=== PATIENT | female | born 1955 | race African-American/Black ===

== ENCOUNTER 2016-04-13 19:27 | Emergency (ER) | payer OTHER ==
[~2016-04-13] VITALS: Ht 157.5 cm; Wt 95.7 kg
[~2016-04-13 19:27] MED LIST: ACET-704 PO; ACET500T33 PO; AMLO5TAB2 PO; CYCL5TAB PO; HYDR-2666 PO; HYDR12.553 PO; LOSA25TA PO; PRED50TA PO; PROAIR HFA8.5 GM IH; VENTOLIN HFA18 GM INH
[2016-04-13 22:17] LABS: BASO # 0.1 x10^3/uL (0.0-0.2); BASO % 1 % (0-3); EOS % 3 % (0-3); HEMATOCRIT 38.8 % (36.0-47.0); HEMOGLOBIN 12.2 g/dL (12.0-15.5); LYMPH # 1.9 x10^3/uL (1.0-4.8); LYMPH % 25 % (24-48); MEAN CORPUSCULAR HEMOGLOBIN 25 pg (25-35); MEAN CORPUSCULAR HGB CONC 31 g/dL (31-37); MEAN CORPUSCULAR VOLUME 79 fL (79-100); MONO % 9 % (0-9); NEUT % 63 % (31-73); PLATELET COUNT 157 x10^3/uL (140-400); RED BLOOD COUNT 4.89 x10^6/uL (3.50-5.40); RED CELL DISTRIBUTION WIDTH 17.4 % (11.5-14.5); WHITE BLOOD COUNT 7.6 x10^3/uL (4.0-11.0)
[2016-04-13 22:18] LABS: BILIRUBIN,URINE SMALL (NEG); GLUCOSE,URINE NEGATIVE (NEG); NITRITE,URINE NEGATIVE (NEG); PROTEIN,URINE NEGATIVE (NEG-TRACE)
[2016-04-13 22:25] LABS: BACTERIA,URINE FEW /HPF (0-FEW); RBC,URINE OCC /HPF (0-2); WBC,URINE OCC /HPF (0-4)
[2016-04-13 22:26] LABS: SQUAMOUS EPITHELIAL CELL,UR FEW /LPF
[2016-04-13] MEDS ORDERED: IPRATRPIUM/ALBUTEROL 0.5/2.5MG 3 ML NEBU. NEB ONE (22:30)
[2016-04-13] MEDS ORDERED: methylPREDNISolone SOD SUCC PF 125 MG/2 ML VIAL. IV ONE (22:30)
[2016-04-13 22:31] LABS: CREATININE 0.7 mg/dL (0.6-1.0); GFR 103.6; POTASSIUM 3.8 mmol/L (3.5-5.1)
[2016-04-13 22:37] LABS: ALBUMIN 3.2 g/dL (3.4-5.0); ALBUMIN/GLOBULIN RATIO 0.8 (1.0-1.7); TOTAL BILIRUBIN 0.4 mg/dL (0.2-1.0); TOTAL PROTEIN 7.1 g/dL (6.4-8.2)
[2016-04-13 22:58] LABS: OBC FLU VALID
[2016-04-13 23:57] VITALS: BP 136/82
[2016-04-14] MEDS ORDERED: PRED50TA PO (00:14)
--- NOTE | 2016-04-14 00:15 | PHYS DOC ---
Past Medical History Past Medical History: Asthma, COPD, Diverticulitis, Diverticulosis, GERD, Hypertension, Other Additional Past Medical Histor: anaphylactic reaction with intubation, ANGIOEDEMA Past Surgical History: Hysterectomy, Other Additional Past Surgical Histo: right oopherectomy Alcohol Use: Rarely Drug Use: None Adult General Chief Complaint Chief Complaint: SHORTNESS OF BREATH HPI HPI Patient is a 60 year old female who presents here today complaining of shortness of breath for 2 days. Patient reports an increasing today. Patient has any fever or shaking chills. Patient pushes had a dry nonproductive cough for approximately 1-2 days. Patient denies any chest pain nausea vomiting diarrhea. She reports no increasing in her chronic lower edema. Patient denies any orthopnea or PND. Patient does have dyspnea on exertion. Patient reports she has a history significant for angioedema, hypertension, COPD, and CHF. Patient denies any diabetes liver or kidney problems. Patient denies any prior coronary disease or strokes in the past. Patient reports she utilizes albuterol nebs and MDIs. Patient is allergic to Levaquin. Review of Systems Review of Systems Constitutional: Denies fever or chills [] Eyes: Denies change in visual acuity, redness, or eye pain [] Review of systems are negative except as documented in history of present illness portion. Current Medications Current Medications Current Medications Medications (Trade) Dose Ordered Sig/Kevon Start Time Stop Time Status Last Admin Dose Admin Albuterol/ Ipratropium (Duoneb) 3 ml 1X ONCE 04/13/16 22:30 04/13/16 22:31 DC 04/13/16 22:33 3 ML Methylprednisolone Sodium Succinate (Solu-Medrol 125mg Vial) 125 mg 1X ONCE 04/13/16 22:30 04/13/16 22:31 DC 04/13/16 22:31 125 MG Allergies Allergies Allergies Coded Allergies Type Severity Reaction Last Updated Verified levofloxacin Allergy Intermediate hives 09/22/15 Yes Physical Exam Physical Exam Constitutional: Well developed, well nourished, no acute distress, non-toxic appearance. [] HENT: Normocephalic, atraumatic, bilateral external ears normal, oropharynx moist, no oral exudates, nose normal. [] Eyes: PERRLA, EOMI, conjunctiva normal, no discharge. [] Neck: Normal range of motion, no tenderness, supple, no stridor. [] Cardiovascular:Heart rate regular rhythm, no murmur [] Lungs & Thorax: Mild diffuse inspiratory and expiratory wheezing. No respiratory distress. Abdomen: Bowel sounds normal, soft, no tenderness, no masses, no pulsatile masses. [] Skin: Warm, dry, no erythema, no rash. [] Back: No tenderness, no CVA tenderness. [] Extremities: No tenderness, no cyanosis, no clubbing, ROM intact, no edema. [] Neurologic: Alert and oriented X 3, normal motor function, normal sensory function, no focal deficits noted. [] Psychologic: Affect normal, judgement normal, mood normal. [] Current Patient Data Vital Signs Vital Signs Date Time Temp Pulse Resp B/P Pulse Ox O2 Delivery O2 Flow Rate FiO2 04/13/16 22:36 94 Room Air 04/13/16 21:33 98.2 75 19 150/84 98.2 Lab Values Laboratory Tests Test 04/13/16 21:30 04/13/16 22:30 White Blood Count 7.6x10^3/uL (4.0-11.0) Red Blood Count 4.89x10^6/uL (3.50-5.40) Hemoglobin 12.2g/dL (12.0-15.5) Hematocrit 38.8% (36.0-47.0) Mean Corpuscular Volume 79fL (79-100) Mean Corpuscular Hemoglobin 25pg (25-35) Mean Corpuscular Hemoglobin Concent 31g/dL (31-37) Red Cell Distribution Width 17.4% (11.5-14.5) H Platelet Count 157x10^3/uL (140-400) Neutrophils (%) (Auto) 63% (31-73) Lymphocytes (%) (Auto) 25% (24-48) Monocytes (%) (Auto) 9% (0-9) Eosinophils (%) (Auto) 3% (0-3) Basophils (%) (Auto) 1% (0-3) Neutrophils # (Auto) 4.8x10^3uL (1.8-7.7) Lymphocytes # (Auto) 1.9x10^3/uL (1.0-4.8) Monocytes # (Auto) 0.7x10^3/uL (0.0-1.1) Eosinophils # (Auto) 0.2x10^3/uL (0.0-0.7) Basophils # (Auto) 0.1x10^3/uL (0.0-0.2) Urine Collection Type Unknown Urine Color Yellow Urine Clarity Clear Urine pH 6.0 Urine Specific [place] 1.020 Urine Protein Negativemg/dL (NEG-TRACE) Urine Glucose (UA) Negativemg/dL (NEG) Urine Ketones (Stick) Negativemg/dL (NEG) Urine Blood Negative (NEG) Urine Nitrite Negative (NEG) Urine Bilirubin Small (NEG) Urine Urobilinogen Dipstick 1.0mg/dL (0.2 mg/dL) Urine Leukocyte Esterase Negative (NEG) Urine RBC Occ/HPF (0-2) Urine WBC Occ/HPF (0-4) Urine Squamous Epithelial Cells Few/LPF Urine Bacteria Few/HPF (0-FEW) Urine Mucus Slight/LPF Sodium Level 142mmol/L (136-145) Potassium Level 3.8mmol/L (3.5-5.1) Chloride Level 105mmol/L (98-107) Carbon Dioxide Level 32mmol/L (21-32) Anion Gap 5 (6-14) L Blood Urea Nitrogen 11mg/dL (7-20) Creatinine 0.7mg/dL (0.6-1.0) Estimated GFR (Cockcroft-Gault) 103.6 BUN/Creatinine Ratio 16 (6-20) Glucose Level 113mg/dL (70-99) H Calcium Level 9.0mg/dL (8.5-10.1) Total Bilirubin 0.4mg/dL (0.2-1.0) Aspartate Amino Transferase (AST) 14U/L (15-37) L Alanine Aminotransferase (ALT) 27U/L (14-59) Alkaline Phosphatase 96U/L (46-116) Troponin I Quantitative < 0.017ng/mL (0.000-0.055) JQ-Rwa-M-Type Natriuretic Peptide 38pg/mL (0-124) Total Protein 7.1g/dL (6.4-8.2) Albumin 3.2g/dL (3.4-5.0) L Albumin/Globulin Ratio 0.8 (1.0-1.7) L Influenza Type A Antigen Negative (NEGATIVE) Influenza Type B Antigen Negative (NEGATIVE) Laboratory Tests 04/13/16 21:30 Laboratory Tests 04/13/16 21:30 EKG EKG [] Interpretation Time: EKG reveals normal sinus rhythm at a heart rate of 70. No evidence of acute ST elevation. Patient's chest x-ray reveals normal heart size. No infiltrates or effusions. Radiology/Procedures Radiology/Procedures [] Course & Med Decision Making Course & Med Decision Making Pertinent Labs and Imaging studies reviewed. (See chart for details) [] A/P: #1 shortness of breath and wheezing. Patient with history significant for asthma/COPD. Patient's workup in the ER and been unremarkable. Patient did receive albuterol Atrovent and Keshawn on the ER with significant improvement in her symptoms. Patient currently feels well and is requesting to be discharged home. Patient is an bleeding the ER without any discomfort the faculty or shortness of breath. Patient is pulse oxing between 93 and 97% in the ER. Patient was taken off her oximeter is doing well without O2 here in the ER. Patient be discharged home with prednisone and with strict instructions to return to the ER she has any further problems. Patient will otherwise follow up with her doctor, Dr. Elizalde within the next 1-2 days. Dragon Disclaimer Dragon Disclaimer This electronic medical record was generated, in whole or in part, using a voice recognition dictation system. Departure Departure Impression: Primary Impression: COPD exacerbation Additional Impression: Dyspnea Disposition: 01 HOME, SELF-CARE Condition: IMPROVED Referrals: BONIFACIO SIDHU MD (PCP) Patient Instructions: Chronic Obstructive Pulmonary Disease Exacerbation Additional Instructions: Please return to the ER if have any further problems or shortness of breath. Please make sure he make an appointment with her doctor within the next 1-2 days. Please make sure you take her prednisone as directed. Scripts Prednisone 50 Mg Tablet1 Tab PO DAILY #5 TAB Prov:DESTINY RICHARDS MD 04/14/16 Problem Qualifiers DESTINY RICHARDS MD Apr 14, 2016 00:10
--- NOTE | 2016-04-14 08:33 | RAD ---
Portable chest, 04/13/2016: History: Shortness of breath Comparison is made to a study from 09/23/2015. The heart is at the upper limits of normal in size. The pulmonary vascularity is normal. No pulmonary infiltrates are seen. There is no evidence of pleural fluid. Mild spurring is present in the spine. IMPRESSION: 1. Borderline cardiomegaly. 2. No acute abnormality is detected.
--- NOTE | 2016-04-14 12:22 | EKG ---
[facility] [address] [place] [address] Test Date: 2016-04-13 Test Time: 21:55:19 Pat Name: IRAM RUIZ Department: Room: Gender: F Duplicating Machine Operator: : [id number] Requested By: DESTINY RICHARDS Order Number: [id number] Reading MD: Jackelyn Cruz Measurements Intervals [place] Rate: 69 P: 46 MD: 156 QRS: -9 QRSD: 88 T: 38 QT: 410 QTc: 441 Interpretive Statements SINUS RHYTHM LEFTWARD AXIS OTHERWISE NORMAL ECG RI6.01 Compared to ECG 10/10/2015 14:01:05 Left-axis deviation now present Electronically Signed On 04-16-2016 0:25:25 ELECTRICIAN OFFICE by Jackelyn Cruz
== END 2016-04-14 00:30 | disposition home or self-care (01) ==
LOC: ER 19:27
DX: J44.1 Chronic obstructive pulmonary disease with (acute) exacerbation (principal); J45.909 Unspecified asthma, uncomplicated; Z88.1 Allergy status to other antibiotic agents
CPT/HCPCS: 36415; 71010; 80053; 81001; 83880; 84484; 85027; 87804; 93005; 94250; 94640; 96374; 99285; J2930; J7620

== ENCOUNTER 2016-10-24 05:29 | Inpatient (IN) | payer OTHER ==
[~2016-10-24] VITALS: Ht 160 cm; Wt 94.5 kg
[2016-10-24] VITALS (18 sets, daily range): BP systolic 112–211; BP diastolic 62–135
[~2016-10-24 05:29] MED LIST changes: -HYDR-2666 PO; +HYDR-2758 PO
[2016-10-24] MEDS ORDERED: EPINEPHrine 1 MG/ML VIAL ONE (05:38)
[2016-10-24] MEDS ORDERED: FAMOTIDINE 20 MG/2 ML VIAL ONE (05:38)
[2016-10-24] MEDS ORDERED: diphenhydrAMINE 50 MG/ML VIAL ONE (05:38)
[2016-10-24] MEDS ORDERED: methylPREDNISolone SOD SUCC PF 125 MG/2 ML VIAL. ONE (05:39)
[2016-10-24 06:13] LABS: BASO % 0 % (0-3); EOS % 1 % (0-3); HEMATOCRIT 42.3 % (36.0-47.0); HEMOGLOBIN 13.3 g/dL (12.0-15.5); INR 0.9 (0.8-1.1); LYMPH # 1.6 x10^3/uL (1.0-4.8); LYMPH % 17 % (24-48); MEAN CORPUSCULAR HEMOGLOBIN 25 pg (25-35); MEAN CORPUSCULAR HGB CONC 32 g/dL (31-37); MEAN CORPUSCULAR VOLUME 80 fL (79-100); MONO % 7 % (0-9); NEUT % 75 % (31-73); PLATELET COUNT 146 x10^3/uL (140-400); PROTHROMBIN TIME PATIENT 11.9 SEC (11.7-14.0); RED BLOOD COUNT 5.26 x10^6/uL (3.50-5.40); RED CELL DISTRIBUTION WIDTH 18.3 % (11.5-14.5); WHITE BLOOD COUNT 9.4 x10^3/uL (4.0-11.0)
[2016-10-24 06:18] LABS: CALCIUM 8.6 mg/dL (8.5-10.1); CREATININE 0.6 mg/dL (0.6-1.0); GFR 123.4; POTASSIUM 3.8 mmol/L (3.5-5.1)
[2016-10-24 06:24] LABS: ALBUMIN 3.5 g/dL (3.4-5.0); TOTAL BILIRUBIN 0.5 mg/dL (0.2-1.0); TOTAL PROTEIN 7.1 g/dL (6.4-8.2)
[2016-10-24] MEDS ORDERED: methylPREDNISolone SOD SUCC PF 125 MG/2 ML VIAL. IV ONE (06:40)
[2016-10-24] MEDS ORDERED: IV NORMAL SALINE 1000ML BAG 1,000 ML IV ONE (06:40)
[2016-10-24] MEDS ORDERED: EPINEPHrine 1 MG/ML VIAL IM ONE ×2 (06:40→06:45)
[2016-10-24] MEDS ORDERED: diphenhydrAMINE 50 MG/ML VIAL IVP ONE (06:40)
[2016-10-24] MEDS ORDERED: FAMOTIDINE 20 MG/2 ML VIAL IVP ONE (06:40)
[2016-10-24] MEDS ORDERED: OXYMETAZOLINE 0.05% NASAL SPRAY 30ML BOTTLE. NS ONE (06:54)
[2016-10-24] MEDS ORDERED: PROPOFOL 50 ML IV ONE ×2 (06:55→07:20)
[2016-10-24] MEDS ORDERED: LIDOCAINE 1% PF 2 ML VIAL. NEB ONE (07:00)
--- NOTE | 2016-10-24 07:02 | PDOC2 ---
CONSULT Date of Consult Date of Consult DATE: 10/24/16 TIME: 06:58 Reason for Consult Reason for Consult: angioedema Referring Physician Referring Physician: Sylvie Identification/Chief Complaint Chief Complaint unable to breathe Problems: Source Source: Unable to obtain due to History of Present Illness Reason for Visit: 61 yo F with hx of angioedema and trach presents to ER with difficulty breathing secondary to swollen tongue. She is unable to speak but communicates with motions and writing. Past Medical History GI: Diverticulosis, Other Renal/: Other Past Surgical History Past Surgical History: Hysterectomy, Other Family History Family History: Alcohol Abuse, Obesity, Other Current Medications Current Medications Current Medications Epinephrine HCl (Adrenalin) 1 mg STK-MED ONCE .ROUTE ; Start 10/24/16 at 05:38; Stop 10/24/16 at 05:39; Status DC Diphenhydramine HCl (Benadryl) 50 mg STK-MED ONCE .ROUTE ; Start 10/24/16 at 05: 38; Stop 10/24/16 at 05:39; Status DC Famotidine (Pepcid) 20 mg STK-MED ONCE .ROUTE ; Start 10/24/16 at 05:38; Stop 10/24/16 at 05:39; Status DC Methylprednisolone Sodium Succinate (SOLU-Medrol 125MG VIAL) 125 mg STK-MED ONCE .ROUTE ; Start 10/24/16 at 05:39; Stop 10/24/16 at 05:40; Status DC Lidocaine HCl (Xylocaine-Mpf 1% Vial) 1 ml 1X ONCE NEB ; Start 10/24/16 at 07:00 ; Stop 10/24/16 at 07:01 Oxymetazoline HCl (Afrin) 120 spray STK-MED ONCE NS ; Start 10/24/16 at 06:54; Stop 10/24/16 at 06:55; Status DC Propofol 50 ml @ As Directed STK-MED ONCE IV ; Start 10/24/16 at 06:55; Stop 10/24 at 06:56; Status DC Active Scripts Active Prednisone 50 Mg Tablet 1 Tab PO DAILY Cyclobenzaprine Hcl 5 Mg Tablet 1 Tab PO TID Tylenol With Codeine #3 Tablet (Acetaminophen/Codeine Phosphate) 1 Each Tablet 1 Tab PO PRN Q6HRS PRN Prednisone 50 Mg Tablet 1 Tab PO DAILY Amlodipine Besylate 5 Mg Tablet 5 Mg PO DAILY Ventolin Hfa Inhaler (Albuterol Sulfate) 18 Gm Hfa.aer.ad 2 Puff INH Q4HRS Hydrocodone-Apap 5-325 (Hydrocodone Bit/Acetaminophen) 1 Each Tablet 1 Tab PO PRN Q6HRS PRN 30 Days Microzide (Hydrochlorothiazide) 12.5 Mg Capsule 12.5 Mg PO DAILY Cozaar (Losartan Potassium) 25 Mg Tablet 25 Mg PO DAILY Allergies Allergies: Coded Allergies: levofloxacin (Verified Allergy, Intermediate, hives, 09/22/15) lisinopril (Verified Allergy, Unknown, 10/24/16) ROS Review of System unobtainable, and hx mainly obtained from the chart Physical Exam General: Alert, Cooperative, moderate distress HEENT: Atraumatic, EOMI (swollen tongue) Abdomen: Soft, No tenderness Extremities: No clubbing, No cyanosis Skin: No rashes Psych/Mental Status: Mental status NL Vitals VITALS Vital Signs Date Time Temp Pulse Resp B/P (MAP) Pulse Ox O2 Delivery O2 Flow Rate FiO2 10/24/16 06:46 91 23 188/105 (132) 96 Room Air Labs Labs Laboratory Tests Test 10/24/16 05:40 White Blood Count 9.4 x10^3/uL (4.0-11.0) Red Blood Count 5.26 x10^6/uL (3.50-5.40) Hemoglobin 13.3 g/dL (12.0-15.5) Hematocrit 42.3 % (36.0-47.0) Mean Corpuscular Volume 80 fL (79-100) Mean Corpuscular Hemoglobin 25 pg (25-35) Mean Corpuscular Hemoglobin Concent 32 g/dL (31-37) Red Cell Distribution Width 18.3 % (11.5-14.5) Platelet Count 146 x10^3/uL (140-400) Neutrophils (%) (Auto) 75 % (31-73) Lymphocytes (%) (Auto) 17 % (24-48) Monocytes (%) (Auto) 7 % (0-9) Eosinophils (%) (Auto) 1 % (0-3) Basophils (%) (Auto) 0 % (0-3) Neutrophils # (Auto) 7.0 x10^3uL (1.8-7.7) Lymphocytes # (Auto) 1.6 x10^3/uL (1.0-4.8) Monocytes # (Auto) 0.7 x10^3/uL (0.0-1.1) Eosinophils # (Auto) 0.1 x10^3/uL (0.0-0.7) Basophils # (Auto) 0.0 x10^3/uL (0.0-0.2) Prothrombin Time 11.9 SEC (11.7-14.0) Prothromb Time International Ratio 0.9 (0.8-1.1) Activated Partial Thromboplast Time 26 SEC (24-38) Sodium Level 142 mmol/L (136-145) Potassium Level 3.8 mmol/L (3.5-5.1) Chloride Level 107 mmol/L (98-107) Carbon Dioxide Level 30 mmol/L (21-32) Anion Gap 5 (6-14) Blood Urea Nitrogen 14 mg/dL (7-20) Creatinine 0.6 mg/dL (0.6-1.0) Estimated GFR (Cockcroft-Gault) 123.4 BUN/Creatinine Ratio 23 (6-20) Glucose Level 109 mg/dL (70-99) Calcium Level 8.6 mg/dL (8.5-10.1) Total Bilirubin 0.5 mg/dL (0.2-1.0) Aspartate Amino Transf (AST/SGOT) 17 U/L (15-37) Alanine Aminotransferase (ALT/SGPT) 35 U/L (14-59) Alkaline Phosphatase 96 U/L (46-116) Total Protein 7.1 g/dL (6.4-8.2) Albumin 3.5 g/dL (3.4-5.0) Albumin/Globulin Ratio 1.0 (1.0-1.7) Laboratory Tests Test 10/24/16 05:40 White Blood Count 9.4 x10^3/uL (4.0-11.0) Red Blood Count 5.26 x10^6/uL (3.50-5.40) Hemoglobin 13.3 g/dL (12.0-15.5) Hematocrit 42.3 % (36.0-47.0) Mean Corpuscular Volume 80 fL (79-100) Mean Corpuscular Hemoglobin 25 pg (25-35) Mean Corpuscular Hemoglobin Concent 32 g/dL (31-37) Red Cell Distribution Width 18.3 % (11.5-14.5) Platelet Count 146 x10^3/uL (140-400) Neutrophils (%) (Auto) 75 % (31-73) Lymphocytes (%) (Auto) 17 % (24-48) Monocytes (%) (Auto) 7 % (0-9) Eosinophils (%) (Auto) 1 % (0-3) Basophils (%) (Auto) 0 % (0-3) Neutrophils # (Auto) 7.0 x10^3uL (1.8-7.7) Lymphocytes # (Auto) 1.6 x10^3/uL (1.0-4.8) Monocytes # (Auto) 0.7 x10^3/uL (0.0-1.1) Eosinophils # (Auto) 0.1 x10^3/uL (0.0-0.7) Basophils # (Auto) 0.0 x10^3/uL (0.0-0.2) Prothrombin Time 11.9 SEC (11.7-14.0) Prothromb Time International Ratio 0.9 (0.8-1.1) Activated Partial Thromboplast Time 26 SEC (24-38) Sodium Level 142 mmol/L (136-145) Potassium Level 3.8 mmol/L (3.5-5.1) Chloride Level 107 mmol/L (98-107) Carbon Dioxide Level 30 mmol/L (21-32) Anion Gap 5 (6-14) Blood Urea Nitrogen 14 mg/dL (7-20) Creatinine 0.6 mg/dL (0.6-1.0) Estimated GFR (Cockcroft-Gault) 123.4 BUN/Creatinine Ratio 23 (6-20) Glucose Level 109 mg/dL (70-99) Calcium Level 8.6 mg/dL (8.5-10.1) Total Bilirubin 0.5 mg/dL (0.2-1.0) Aspartate Amino Transf (AST/SGOT) 17 U/L (15-37) Alanine Aminotransferase (ALT/SGPT) 35 U/L (14-59) Alkaline Phosphatase 96 U/L (46-116) Total Protein 7.1 g/dL (6.4-8.2) Albumin 3.5 g/dL (3.4-5.0) Albumin/Globulin Ratio 1.0 (1.0-1.7) Assessment/Plan Assessment/Plan angioedema d/w anesthesia and pulm and ER will plan elective intubation in ER will be readily available for trach d/w pt Thanks for consult! DELPHINE SAM MD Oct 24, 2016 07:02
[2016-10-24] MEDS: IV NORMAL SALINE 1000ML BAG 1,000 ML IV SCH ×2 (07:09→17:09)
[2016-10-24] MEDS ORDERED: ONDANSETRON PF 4 MG/2 ML VIAL. IV PRN (07:15)
--- NOTE | 2016-10-24 07:27 | PHYS DOC ---
Past Medical History Past Medical History: Asthma, COPD, Diverticulitis, Diverticulosis, GERD, Hypertension, Other Additional Past Medical Histor: anaphylactic reaction with intubation, ANGIOEDEMA Past Surgical History: Hysterectomy, Other Additional Past Surgical Histo: right oopherectomy Alcohol Use: Rarely Drug Use: None Adult General Chief Complaint Chief Complaint: ALLERGIC REACTION HPI HPI Patient is a 61 year old female who presents with angioedema. It is difficult to communicate with the patient because of severe tongue swelling. Symptoms began this morning. She has extremely swollen tongue. Denies shortness of breath at this time. States she has previous episodes of angioedema, initially secondary to lisinopril, but with recurrence of idiopathic nature. Initial episode resulted in emergent tracheostomy. She denies use of any medications at this time. No new foods or environmental exposures. PCP is Dr. Sidhu. Review of Systems Review of Systems reports tongue swelling, otherwise unable to obtain due to clinical condition. Current Medications Current Medications Current Medications Medications (Trade) Dose Ordered Sig/Kevon Start Time Stop Time Status Last Admin Dose Admin Diphenhydramine HCl (Benadryl) 50 mg STK-MED ONCE 10/24/16 05:38 10/24/16 05:39 DC Epinephrine HCl (Adrenalin) 1 mg STK-MED ONCE 10/24/16 05:38 10/24/16 05:39 DC Famotidine (Pepcid) 20 mg STK-MED ONCE 10/24/16 05:38 10/24/16 05:39 DC Methylprednisolone Sodium Succinate (SOLU-Medrol 125MG VIAL) 125 mg STK-MED ONCE 10/24/16 05:39 10/24/16 05:40 DC Allergies Allergies Allergies Coded Allergies Type Severity Reaction Last Updated Verified levofloxacin Allergy Intermediate hives 09/22/15 Yes lisinopril Allergy Unknown 10/24/16 Yes Physical Exam Physical Exam Constitutional: Obese, no acute distress, non-toxic appearance. HENT: Normocephalic, atraumatic, bilateral external ears normal, oropharynx moist, nose normal. Angioedema with severe tongue edema, lips do not appear swollen, unable to visualize posterior oropharyngeal structures although there is some space between the tongue and the roof of her mouth Eyes: conjunctiva normal, no discharge. Neck: supple, no stridor. Cardiovascular: RRR, no murmurs, no edema. Lungs & Thorax: LCTAB, no wheezing, no respiratory distress. Abdomen: soft, nontender, nondistended. Skin: Warm, dry, no erythema, no rash. Back: No tenderness. Extremities: No tenderness, no edema. Neurologic: Alert, moves all extremities Current Patient Data Vital Signs Vital Signs Date Time Temp Pulse Resp B/P (MAP) Pulse Ox O2 Delivery O2 Flow Rate FiO2 10/24/16 06:10 78 23 148/82 (104) 96 Room Air Lab Values Laboratory Tests Test 10/24/16 05:40 White Blood Count 9.4 x10^3/uL (4.0-11.0) Red Blood Count 5.26 x10^6/uL (3.50-5.40) Hemoglobin 13.3 g/dL (12.0-15.5) Hematocrit 42.3 % (36.0-47.0) Mean Corpuscular Volume 80 fL (79-100) Mean Corpuscular Hemoglobin 25 pg (25-35) Mean Corpuscular Hemoglobin Concent 32 g/dL (31-37) Red Cell Distribution Width 18.3 % (11.5-14.5) H Platelet Count 146 x10^3/uL (140-400) Neutrophils (%) (Auto) 75 % (31-73) H Lymphocytes (%) (Auto) 17 % (24-48) L Monocytes (%) (Auto) 7 % (0-9) Eosinophils (%) (Auto) 1 % (0-3) Basophils (%) (Auto) 0 % (0-3) Neutrophils # (Auto) 7.0 x10^3uL (1.8-7.7) Lymphocytes # (Auto) 1.6 x10^3/uL (1.0-4.8) Monocytes # (Auto) 0.7 x10^3/uL (0.0-1.1) Eosinophils # (Auto) 0.1 x10^3/uL (0.0-0.7) Basophils # (Auto) 0.0 x10^3/uL (0.0-0.2) Prothrombin Time 11.9 SEC (11.7-14.0) Prothrombin Time INR 0.9 (0.8-1.1) PTT 26 SEC (24-38) Sodium Level 142 mmol/L (136-145) Potassium Level 3.8 mmol/L (3.5-5.1) Chloride Level 107 mmol/L (98-107) Carbon Dioxide Level 30 mmol/L (21-32) Anion Gap 5 (6-14) L Blood Urea Nitrogen 14 mg/dL (7-20) Creatinine 0.6 mg/dL (0.6-1.0) Estimated GFR (Cockcroft-Gault) 123.4 BUN/Creatinine Ratio 23 (6-20) H Glucose Level 109 mg/dL (70-99) H Calcium Level 8.6 mg/dL (8.5-10.1) Total Bilirubin 0.5 mg/dL (0.2-1.0) Aspartate Amino Transferase (AST) 17 U/L (15-37) Alanine Aminotransferase (ALT) 35 U/L (14-59) Alkaline Phosphatase 96 U/L (46-116) Total Protein 7.1 g/dL (6.4-8.2) Albumin 3.5 g/dL (3.4-5.0) Albumin/Globulin Ratio 1.0 (1.0-1.7) Laboratory Tests 10/24/16 05:40 Laboratory Tests 10/24/16 05:40 EKG EKG [] Radiology/Procedures Radiology/Procedures post intubation chest x-ray pending[] Course & Med Decision Making Course & Med Decision Making Pertinent Labs and Imaging studies reviewed. (See chart for details) The patient presents with angioedema. She was in no distress at time of arrival , stable oxygen saturation, normal breath sounds without stridor or wheezing. Immediately administered epinephrine, solumedrol, Benadryl, Pepcid, and IV fluids. Her tongue did not mention or improve. Give additional dose of IM epinephrine. Ordered FFP in case there is a component of hereditary angioedema. No change in her symptoms. Immediately after I assessed the patient I called for the MACHINERY ERECTOR and respiratory therapist to come to the emergency department. We repeatedly examined the patient together. MACHINERY ERECTOR present with difficult airway cart. Attempting to call anesthesiologist. I consulted with Dr. Blanc of general surgery who came to the emergency department. Reconvened at the bedside with MACHINERY ERECTOR, anesthesiologist, general surgeon. Decision made to proceed with intubation with surgeon present for trach placement if required. Anesthesia managed airway and placed endotracheal tube without complication. Patient placed on ventilator and sedation initiated. Post intubation chest x-ray was ordered, had not been resulted at time of dictation of this note. Mid way through her emergency department course I consulted with Dr. Burnett who agrees to consult, he was instrumental in communicating with anesthesia. Also discussed with Dr. Sidhu who agrees to admit to inpatient status to the ICU. The patient is being admitted in critical condition. Critical care time: 90 minutes [] Dragon Disclaimer Dragon Disclaimer This electronic medical record was generated, in whole or in part, using a voice recognition dictation system. Departure Departure Impression: Primary Impression: Angioedema Disposition: ADMITTED INPATIENT Admitting Physician: Bonifacio Sidhu Condition: CRITICAL Referrals: BONIFACIO SIDHU MD (PCP) LAINEY UMANA MD Oct 24, 2016 07:27
[2016-10-24] MEDS ORDERED: ETOMIDATE 20 MG/10 ML VIAL. IV ONE ×2 (07:40→08:00)
[2016-10-24] MEDS ORDERED: SUCCINYLCHOLINE 200 MG/10 ML VIAL. ONE (07:41)
[2016-10-24] MEDS ORDERED: fentaNYL PF VIAL 100 MCG/2 ML VIAL IV ONE (08:00)
[2016-10-24] MEDS ORDERED: MIDAZOLAM PREMIX 100 ML IV ONE ×2 (08:00→15:23)
[2016-10-24] MEDS ORDERED: PROPOFOL 100 ML IV ONE (08:00)
[2016-10-24] MEDS ORDERED: SUCCINYLCHOLINE 200 MG/10 ML VIAL. IV ONE (08:00)
[2016-10-24] MEDS ORDERED: MIDAZOLAM HCL/PF 5 MG/5 ML VIAL. IV ONE (08:00)
[2016-10-24 08:01] LABS: HCO3 ABG 25 mmol/L (21-28); PCO2 ABG 42 mmHg (35-46); PH ABG 7.39 (7.35-7.45); PO2 ABG 130 mmHg (65-108); SAT O2 ABG 98 % (92-99)
[2016-10-24 08:06] LABS: FIO2 ABG 50
--- NOTE | 2016-10-24 08:06 | RAD ---
Portable chest, 10/24/2016: History: Check ETT tube placement Comparison is made to a study from 04/13/2016. An ET tube is in place with its tip located 4-5 cm above the [place]. The heart is at the upper limits of normal in size. The pulmonary vascularity is within normal limits. No pulmonary infiltrate is seen. There is no evidence of pleural fluid, although the left lateral costophrenic angle was not completely included on this exam. IMPRESSION: 1. The ET tube is in satisfactory position. 2. No acute infiltrates.
--- NOTE | 2016-10-24 10:18 | PDOC ---
Provider Note Provider Note Pt seen.H&P dictated BONIFACIO SIDHU MD Oct 24, 2016 10:18
[2016-10-24] MEDS: methylPREDNISolone SOD SUCC PF 125 MG/2 ML VIAL. IV SCH ×2 (11:00→19:44)
[2016-10-24] MEDS: hydrALAZINE 20 MG/ML VIAL. IVP PRN ×2 (11:53→18:16)
--- NOTE | 2016-10-24 14:18 | PDOC ---
PULMONARY PROGRESS NOTES Vitals Vital Signs Date Time Temp Pulse Resp B/P (MAP) Pulse Ox O2 Delivery O2 Flow Rate FiO2 10/24/16 12:02 100 Ventilator 10/24/16 11:53 74 204/94 10/24/16 07:45 16 10/24/16 07:12 98.6 98.6 10/24/16 06:59 15.0 Labs Laboratory Tests Test 10/24/16 05:40 10/24/16 07:45 White Blood Count 9.4 x10^3/uL (4.0-11.0) Red Blood Count 5.26 x10^6/uL (3.50-5.40) Hemoglobin 13.3 g/dL (12.0-15.5) Hematocrit 42.3 % (36.0-47.0) Mean Corpuscular Volume 80 fL (79-100) Mean Corpuscular Hemoglobin 25 pg (25-35) Mean Corpuscular Hemoglobin Concent 32 g/dL (31-37) Red Cell Distribution Width 18.3 % (11.5-14.5) Platelet Count 146 x10^3/uL (140-400) Neutrophils (%) (Auto) 75 % (31-73) Lymphocytes (%) (Auto) 17 % (24-48) Monocytes (%) (Auto) 7 % (0-9) Eosinophils (%) (Auto) 1 % (0-3) Basophils (%) (Auto) 0 % (0-3) Neutrophils # (Auto) 7.0 x10^3uL (1.8-7.7) Lymphocytes # (Auto) 1.6 x10^3/uL (1.0-4.8) Monocytes # (Auto) 0.7 x10^3/uL (0.0-1.1) Eosinophils # (Auto) 0.1 x10^3/uL (0.0-0.7) Basophils # (Auto) 0.0 x10^3/uL (0.0-0.2) Prothrombin Time 11.9 SEC (11.7-14.0) Prothromb Time International Ratio 0.9 (0.8-1.1) Activated Partial Thromboplast Time 26 SEC (24-38) Sodium Level 142 mmol/L (136-145) Potassium Level 3.8 mmol/L (3.5-5.1) Chloride Level 107 mmol/L (98-107) Carbon Dioxide Level 30 mmol/L (21-32) Anion Gap 5 (6-14) Blood Urea Nitrogen 14 mg/dL (7-20) Creatinine 0.6 mg/dL (0.6-1.0) Estimated GFR (Cockcroft-Gault) 123.4 BUN/Creatinine Ratio 23 (6-20) Glucose Level 109 mg/dL (70-99) Calcium Level 8.6 mg/dL (8.5-10.1) Total Bilirubin 0.5 mg/dL (0.2-1.0) Aspartate Amino Transf (AST/SGOT) 17 U/L (15-37) Alanine Aminotransferase (ALT/SGPT) 35 U/L (14-59) Alkaline Phosphatase 96 U/L (46-116) Total Protein 7.1 g/dL (6.4-8.2) Albumin 3.5 g/dL (3.4-5.0) Albumin/Globulin Ratio 1.0 (1.0-1.7) O2 Saturation 98 % (92-99) Arterial Blood pH 7.39 (7.35-7.45) Arterial Blood pCO2 at Patient Temp 42 mmHg (35-46) Arterial Blood pO2 at Patient Temp 130 mmHg (65-108) Arterial Blood HCO3 25 mmol/L (21-28) Arterial Blood Base Excess 0 mmol/L (-3-3) FiO2 50 Laboratory Tests Test 10/24/16 05:40 10/24/16 07:45 White Blood Count 9.4 x10^3/uL (4.0-11.0) Red Blood Count 5.26 x10^6/uL (3.50-5.40) Hemoglobin 13.3 g/dL (12.0-15.5) Hematocrit 42.3 % (36.0-47.0) Mean Corpuscular Volume 80 fL (79-100) Mean Corpuscular Hemoglobin 25 pg (25-35) Mean Corpuscular Hemoglobin Concent 32 g/dL (31-37) Red Cell Distribution Width 18.3 % (11.5-14.5) Platelet Count 146 x10^3/uL (140-400) Neutrophils (%) (Auto) 75 % (31-73) Lymphocytes (%) (Auto) 17 % (24-48) Monocytes (%) (Auto) 7 % (0-9) Eosinophils (%) (Auto) 1 % (0-3) Basophils (%) (Auto) 0 % (0-3) Neutrophils # (Auto) 7.0 x10^3uL (1.8-7.7) Lymphocytes # (Auto) 1.6 x10^3/uL (1.0-4.8) Monocytes # (Auto) 0.7 x10^3/uL (0.0-1.1) Eosinophils # (Auto) 0.1 x10^3/uL (0.0-0.7) Basophils # (Auto) 0.0 x10^3/uL (0.0-0.2) Prothrombin Time 11.9 SEC (11.7-14.0) Prothromb Time International Ratio 0.9 (0.8-1.1) Activated Partial Thromboplast Time 26 SEC (24-38) Sodium Level 142 mmol/L (136-145) Potassium Level 3.8 mmol/L (3.5-5.1) Chloride Level 107 mmol/L (98-107) Carbon Dioxide Level 30 mmol/L (21-32) Anion Gap 5 (6-14) Blood Urea Nitrogen 14 mg/dL (7-20) Creatinine 0.6 mg/dL (0.6-1.0) Estimated GFR (Cockcroft-Gault) 123.4 BUN/Creatinine Ratio 23 (6-20) Glucose Level 109 mg/dL (70-99) Calcium Level 8.6 mg/dL (8.5-10.1) Total Bilirubin 0.5 mg/dL (0.2-1.0) Aspartate Amino Transf (AST/SGOT) 17 U/L (15-37) Alanine Aminotransferase (ALT/SGPT) 35 U/L (14-59) Alkaline Phosphatase 96 U/L (46-116) Total Protein 7.1 g/dL (6.4-8.2) Albumin 3.5 g/dL (3.4-5.0) Albumin/Globulin Ratio 1.0 (1.0-1.7) O2 Saturation 98 % (92-99) Arterial Blood pH 7.39 (7.35-7.45) Arterial Blood pCO2 at Patient Temp 42 mmHg (35-46) Arterial Blood pO2 at Patient Temp 130 mmHg (65-108) Arterial Blood HCO3 25 mmol/L (21-28) Arterial Blood Base Excess 0 mmol/L (-3-3) FiO2 50 Medications Active Scripts Medications Dose Route/Sig Max Daily Dose Days Date Category Prednisone 50 Mg Tablet 1 Tab PO DAILY 04/14/16 Rx Cyclobenzaprine Hcl 5 Mg Tablet 1 Tab PO TID 10/10/15 Rx Tylenol With Codeine #3 Tablet (Acetaminophen/Codeine Phosphate) 1 Each Tablet 1 Tab PO PRN Q6HRS PRN 10/10/15 Rx Prednisone 50 Mg Tablet 1 Tab PO DAILY 09/23/15 Rx Amlodipine Besylate 5 Mg Tablet 5 Mg PO DAILY 09/23/15 Rx Ventolin Hfa Inhaler (Albuterol Sulfate) 18 Gm Hfa.aer.ad 2 Puff INH Q4HRS 09/23/15 Rx Hydrocodone-Apap 5-325 (Hydrocodone Bit/Acetaminophen) 1 Each Tablet 1 Tab PO PRN Q6HRS PRN 30 04/21/14 Rx Microzide (Hydrochlorothiazide) 12.5 Mg Capsule 12.5 Mg PO DAILY 04/21/14 Rx Cozaar (Losartan Potassium) 25 Mg Tablet 25 Mg PO DAILY 04/21/14 Rx Impression . [id number] FULL CONSULT DICTATED THANKS CHINA HERCULES MD Oct 24, 2016 14:18
--- NOTE | 2016-10-24 17:16 | PDOC ---
Provider Note Provider Note Pt was seen in icu this am. H&P dictated. #[id number] BONIFACIO SIDHU MD Oct 24, 2016 17:15
[2016-10-24] MEDS ORDERED: cloNIDine TTS-1 1 PATCH PATCH.TDWK TD SCH (18:00)
[2016-10-24] MEDS: AMINO AC 3%/ELECTROLYTE/GLYCER 1,000 ML IV SCH (18:17)
[2016-10-24] MEDS: ENOXAPARIN 40 MG/0.4 ML SYRINGE. SQ SCH (19:45)
[2016-10-24] MEDS: FAMOTIDINE 20 MG/2 ML VIAL IVP SCH (21:00)
--- NOTE | 2016-10-24 21:56 | HP ---
ADMIT DATE: 10/24/2016 LOCATION: 112. REASON FOR ADMISSION TO THE HOSPITAL: Angioedema of the tongue. HISTORY OF PRESENT ILLNESS: The patient is a 61-year-old female. The patient has a history of idiopathic angioedema. This is, I believe, third episode she had. First episode was 10 years ago and at that time she was on ventilator. She had a tracheostomy , second time she was at and in the past she has seen Allergy, channel marketing specialist for angioedema and she is allergic to lisinopril and levofloxacin. The patient came into the Emergency Room. The last time I had seen her in the office more than a year ago. She was having difficulty in communicating and difficulty in swallowing and speaking because she developed swelling in the tongue and the patient was seen in the Emergency Room and was given epinephrine without much improvement and she was given fresh frozen plasma and because of worsening swelling and to protect the airway, the patient was intubated by anesthesia and admitted to the ICU. Pulmonary was consulted. PAST MEDICAL HISTORY: Has a history of hypertension, COPD, asthma, diverticulosis, angioedema idiopathic, had intubation in the past, had tracheostomy for the same problem. OTHER SURGICAL HISTORY: Hysterectomy, right oophorectomy, had a previous tracheostomy, which is closed now. ALLERGIES: LEVOFLOXACIN AND LISINOPRIL. MEDICATIONS: The patient is not taking any medications now. PERSONAL HISTORY: Used to smoke in the past. No history of alcohol or drug abuse. FAMILY HISTORY: Hypertension. REVIEW OF SYMPTOMS: Not able to elicit. The patient was intubated on vent. She is on Versed. PHYSICAL EXAMINATION: VITAL SIGNS: The patient has temperature 98, pulse 84, respirations 20, blood pressure 193/101 and 96% on room air. HEENT: Head is atraumatic. Pupils sluggish. The patient has swelling of the tongue, orally intubated. NECK: Scar of previous tracheostomy, which was closed. CHEST: Symmetrical. CARDIOVASCULAR: S1, S2. LUNGS: Good air entry. ABDOMEN: Soft, no masses palpable. EXTERNAL GENITALIA: Weiner present. RECTAL: Deferred. EXTREMITIES: No calf tenderness or edema. Pulses 1+. NEUROLOGIC: The patient is sedated on vent. LABORATORY DATA: Shows a white count of 9, hemoglobin 13, platelets 146. Electrolytes show sodium 142, potassium 3.8, chloride 107, bicarb 30, BUN 14, creatinine 0.6, glucose 109. LFTs were normal. INR 0.9. Chest x-ray: ET tube in position. No acute infiltrations. FINAL IMPRESSION: 1. Idiopathic angioedema. 2. Hypertension. PLAN: At this time was admit to the hospital ICU, intubated. The patient was given epinephrine, Benadryl, Solu-Medrol and FFP, ventilatory support. GI prophylaxis. DVT prophylaxis. We will have Pulmonology consult, Dermatology consult. BONIFACIO SIDHU MD DR: RODRIGUE/concepcion JOB#: [id number] / [id number] DELL
[2016-10-24] MEDS: MIDAZOLAM PREMIX 100 ML IV PRN (23:08)
[2016-10-25] VITALS (26 sets, daily range): BP systolic 138–197; BP diastolic 66–95
--- NOTE | 2016-10-25 00:39 | CONS ---
DATE OF CONSULTATION: 10/24/2016 ATTENDING PHYSICIAN: Dr. Cotton. REASON FOR CONSULTATION: The patient is seen in pulmonary consultation at the request of Dr. Wu for ____ management. HISTORY OF PRESENT ILLNESS: The patient is a 61-year-old, who has had previous angioedema. She is not on an JUAN DAVID inhibitor. She had difficulty communicating the Emergency Room as a consequence of severe tongue swelling. I discussed the case with the Emergency Department physician this morning. I also discussed with the anesthesiologist and Dr. Blanc. The patient was electively intubated in the Emergency Department. She is currently on assist control ventilation, sedated. She has had no issues with any respiratory distress. Her arterial blood gas revealed a pH of 7.39, pCO2 of 42, pO2 of 130. White count was noted. Chest x-ray reviewed proper position of the endotracheal tube with no significant infiltrates. PAST MEDICAL HISTORY: Remarkable for previous angioedema secondary to lisinopril. She is currently off of JUAN DAVID inhibitors. She has a history of COPD with asthma component, diverticulitis, diverticulosis, gastroesophageal reflux, hypertension, anaphylactic reaction to lisinopril requiring intubation, hysterectomy and right oophorectomy. PAST SURGICAL HISTORY: As above. ALLERGIES: TO LEVAQUIN AND LISINOPRIL. REVIEW OF SYSTEMS: Unobtainable secondary to the patient's condition. CURRENT MEDICATION: List was reviewed. Please see the MRAD. SOCIAL HISTORY: Unknown if she smokes. There is no history given of alcoholism. PHYSICAL EXAMINATION: GENERAL: The patient was sedated on mechanical ventilation. VITAL SIGNS: Have been stable since transfer to the intensive care unit, in fact the blood pressure has been elevated. HEENT: Eyes, the sclerae were nonicteric. NECK: Jugular venous distention was not elevated. No lymphadenopathy. CHEST: Orally, placed endotracheal tube. LUNGS: Bilaterally clear. No wheezes. CARDIOVASCULAR: Regular rate and rhythm with S1, S2, no S3. ABDOMEN: Soft, nontender, nondistended. EXTREMITIES: No clubbing, cyanosis or edema. NEUROLOGIC: The patient was sedated. A detailed neuro exam was not performed. LABORATORY DATA: Reviewed. Chest x-ray clear. IMPRESSION: 1. Acute respiratory failure secondary to angioedema. 2. History of lisinopril-induced angioedema. 3. Hypertension. 4. Chronic obstructive pulmonary disease with possible asthma component. 5. Diverticulitis. 6. History of diverticulosis. PLAN: 1. Continue mechanical support. 2. Initiate tube feeding in the morning. 3. We will evaluate on a daily basis. If the patient is ready to be extubated, woody deflate the cough and check for air leak around the cuff. 4. DVT and GI prophylaxis. Dr. Wu, I do appreciate the privilege in sharing in the patient's care. CHINA HERCULES MD DR: KASSY/concepcion JOB#: [id number] / [id number]
[2016-10-25] MEDS: methylPREDNISolone SOD SUCC PF 125 MG/2 ML VIAL. IV SCH ×3 (03:14→22:19)
[2016-10-25] MEDS: IV NORMAL SALINE 1000ML BAG 1,000 ML IV SCH (03:15)
--- NOTE | 2016-10-25 04:34 | ACF ---
Admission Forms Criteria SYSTEMIC OR INFECTIOUS CONDITION Clinical Indications for Admission to Inpatient Care (Place 'X' for any and all applicable criteria): Hospital admission is needed for appropriate care of the patient because of ANY ONE of the following: []I. Hemodynamic instability indicated by ANY ONE of the following(1)(2)(3)(4 )(5): []a. Vital sign abnormality not readily corrected by appropriate treatment within 12 to 24 hours indicated by ANY ONE of the following: []i) Tachycardia that persists despite appropriate treatment []ii) Hypotension that persists despite appropriate treatment []iii) Orthostatic vital sign changes that persist despite appropriate treatment []b. Vital sign abnormality that is severe indicated by ANY ONE of the following: []i. Inadequate perfusion indicated by ANY ONE of the following: []1) Lactic acidosis (greater than 2 mmol/L) []2) New abnormal capillary refill (greater than 3 seconds) []3) Reduced urine output []4) New altered mental status []5) Myocardial Ischemia []ii. Mean arterial pressure [A] less than 60 mm Hg []iii. Mean arterial pressure[A] less than 70 mm Hg after 30 minutes of appropriate treatment (eg, fluid resuscitation) []iv. Sustained heart rate greater than 120 beats per minute in adult []v. IV inotropic or vasopressor medication required to maintain adequate blood pressure or perfusion []II. Systemic or infectious condition causing severe symptoms or findings not responsive to emergency or observation care treatment (as appropriate) indicated by ANY ONE of the following: []a. Cardiac arrhythmias of immediate concern(1)(2)(3) []b. Severe endocrine disorder (eg, thyrotoxicosis, adrenal insufficiency)(4)(5) []c. Seizures (eg, new or recurrent)(6) []d. New-onset end organ failure or dysfunction as indicated by ANY ONE of the following: []i. Acute unexplained hypoxemia (eg, not from lung infection or chronic disease)(7)(8)(9) []ii. Acute renal failure as indicated by new onset of ANY ONE of the following(10)(11)(12)(13)(14): []1) 3-fold rise in serum creatinine from baseline []2) Serum creatinine greater than 4 mg/dL (354 micromoles/L) with acute rise greater than 0.5 mg/dL (44.2 micromoles/L) []3) Reduction of more than 75% in estimated glomerular filtration rate from baseline. []4) Estimated glomerular filtration rate less than 35 mL/min/1.73m2 ( 0.59 mL/sec/1.73m2) in child younger than 18 years. []5) Cessation of urine output indicated by ALL of the following: []A. Adequate volume status []B. Inadequate urine output as indicated by ANY ONE of the following: []a. Urine output less than 0.3 mL/kg/hr for 24 hours []b. Anuria (urine output less than 0.1 mL/kg/hr) for 12 hours []iii. Acute mental status changes(15) []iv. Acute hepatic failure (eg, plasma bilirubin greater than 4 mg/ dL (68 micromoles/L), new INR greater than 2.0)(16)(17) []e. Unmanageable nausea and vomiting(18) []f. New-onset or uncontrolled central diabetes insipidus(19)(20) []g. Clinically significant dehydration(18)(21) []h. Hypoglycemia(22) []i. Acidosis (pH less than 7.35) or alkalosis (pH greater than 7.45)( 22)(23) []j. Toxic drug level that indicates need for specific monitoring or treatment(24)(25) []k. Severe electrolyte abnormalities indicated by ALL of the following( 1)(2)(3): []i. Electrolytes and associated findings are not as expected for patient baseline or acceptable treatment effects. []ii. Severe abnormalities indicated by ANY ONE of the following: []1) Sodium less than 130 mEq/L (mmol/L) (new) []2) Sodium less than 135 mEq/L (mmol/L) with ANY ONE of the following: []A. Uncorrectable (to near normal or chronic baseline) after trial of outpatient and emergency treatment []B. Altered mental status []C. Seizures []D. Severe medical etiology requiring inpatient management (eg , heart failure, hypovolemia) []3) Sodium greater than 155 mEq/L (mmol/L) []4) Sodium greater than 150 mEq/L (mmol/L) with ANY ONE of the following: []A. Uncorrectable (to near normal or chronic baseline) with outpatient and emergency treatment []B. Altered mental status []C. Seizures []D. Severe medical etiology (eg, hypovolemia, diabetes insipidus) []5) Potassium less than 2.5 mEq/L (mmol/L) despite outpatient and emergency treatment []6) Potassium less than 3 mEq/L (mmol/L) with ANY ONE of the following : []A. Weakness []B. Cardiac abnormality (eg, arrhythmia, conduction disturbance ) []C. Cardiac ischemia []D. Ileus []E. Ongoing medical cause requiring inpatient management (eg, acute renal wasting or SIADH) []F. Other severe symptoms []7) Potassium greater than 6.5 mEq/L (mmol/L) []8) Potassium greater than 5 mEq/L (mmol/L) with ANY ONE of the following: []A. Uncorrectable (to near normal or chronic baseline) with outpatient and emergency treatment []B. Severe ECG findings[A] []C. Acute worsening of renal failure (creatinine greater than 2.5 mg/dL (221 micromoles/L) or significant elevation for age and size) []D. Severe weakness []E. Severe medical etiology (eg, hemolysis, infection, drug overdose) []9) Calcium less than 7 mg/dL (1.75 mmol/L) despite outpatient and emergency treatment(5) []10) Calcium less than 8 mg/dL (2 mmol/L) with significant symptoms or findings (eg, altered mental status, muscle spasms, seizures, breathing difficulty, cardiac abnormality (eg, arrhythmia or conduction disturbance))(5) []11) Calcium greater than 14 mg/dL (3.5 mmol/L)(5) []12) Calcium greater than 12 mg/dL (3 mmol/L) with ANY ONE of the following(5): []A. Uncorrectable (to near normal or chronic baseline) with outpatient and emergency treatment []B. Significant dehydration or hypovolemia as indicated by ALL of the following(3)(6)(7): []a. Not resolved with initial treatments []b. Clinically significant dehydration as indicated by ANY ONE of the following: [](1) Vomiting refractory to outpatient treatment (ie, precluding oral rehydration) [](2) Inability to drink [](3) Hypernatremia or other electrolyte abnormality unable to be corrected with outpatient and emergency treatment [](4) Failure to remain hydrated with outpatient therapy [](5) Reduced urine output [](6) Hypotension [](7) Serious cause for dehydration requiring acute hospitalization ( eg, bowel obstruction, increased intracranial pressure, infectious cause) [](8) Child with ANY ONE of the following(8): [](i) Severe abdominal tenderness [](ii) Adequate care not available at home [](iii) Severe dehydration (greater than 9% loss of body weight) []C. Significant symptoms or findings (eg, altered mental status , cardiac abnormality (eg, arrhythmia, conduction disturbance), malignant etiology requiring inpatient treatment) []13) Phosphorus less than 1 mg/dL (0.32 mmol/L) []14) Phosphorus less than 1.5 mg/dL (0.48 mmol/L) with ANY ONE of the following: []A. Patient unresponsive to outpatient and emergency treatment []B. Significant symptoms or findings (eg, weakness, altered mental status, breathing difficulty, seizures, rhabdomyolysis) []15) Phosphorus greater than 10 mg/dL (3.2 mmol/L) []16) Phosphorus greater than 4.5 mg/dL (1.45 mmol/L) (new) with ANY ONE of the following: []A. Severe medical etiology (eg, crush injury, acute renal failure) []B. Associated hypocalcemia with significant findings (eg, neurologic symptoms, altered mental status, muscle spasms, seizures, breathing difficulty, cardiac abnormality (eg, arrhythmia, conduction disturbance)) []16) Magnesium less than 1 mg/dL (0.41 mmol/L) []17) Magnesium less than 1.5 mg/dL (0.62 mmol/L) with ANY ONE of the following: []A. Patient unresponsive to outpatient and emergency treatment []B. Associated hypocalcemia with significant findings (eg, altered mental status, muscle spasms, seizures, breathing difficulty, cardiac abnormality (eg, arrhythmia, conduction disturbance)) []C. Associated hypokalemia (potassium less than 3 mEq/L (mmol/L )) with risk of arrhythmia []18) Magnesium greater than 4 mEq/L (2 mmol/L) []19) Magnesium greater than 2.5 mEq/L (1.25 mmol/L) with significant symptoms or findings (eg, weakness, altered mental status, cardiac abnormality (eg, arrhythmia, conduction disturbance), breathing difficulty, severe medical etiology (eg, renal failure, hypovolemia)) []20) Uric acid greater than 20 mg/dL (1190 micromoles/L)(9) []21) Uric acid greater than 8 mg/dL (476 micromoles/L) with significant symptoms or findings of tumor lysis syndrome (eg, creatinine greater than 1.5 times upper limit of normal, cardiac abnormality (eg , arrhythmia, conduction disturbance), seizure)(9) []III. High fever or other high-risk infection situation as indicated by ANY ONE of the following(26)(27)(28): []a. Outpatient and observation care antimicrobial treatment unavailable, not effective, or not appropriate []b. Documented bacteremia []c. Temperature greater than 104.9 degrees F (40.5 degrees C) (oral) []d. Temperature greater than 103.1 degrees F (39.5 degrees C) (oral) or less than 96.8 degrees F (36 degrees C) (rectal) that does not respond to emergency treatment and observation care []IV. High-risk febrile neutropenia[A] as indicated by ANY ONE of the following(29)(30)(31)(32): []a. Profound neutropenia[B] anticipated to extend for more than 7 days []b. Hemodynamic instability []c. Hypoxemia []d. Tachypnea []e. Altered mental status []f. New-onset abdominal pain []g. New-onset vomiting or diarrhea []h. Oral or gastrointestinal mucositis that interferes with swallowing or causes severe diarrhea []i. Focal infection (eg, cellulitis, pneumonia, central line or catheter infection, perirectal abscess) []j. Renal insufficiency (eg, GFR of less than 30 mL/min/1.73m2 (0.5 mL/sec /1.73m2)). []k. Severe liver dysfunction (transaminase levels greater than 5 times normal) []l. Platelet count less than 50,000/mm3 (50 x109/L)(33) []m. Leukemia or lymphoma induction therapy []n. Leukemia not in complete remission or with evidence of disease progression []o. Bone marrow transplant patient []p. Alemtuzumab being used for therapy []q. [employer] Supportive Care in Cancer (MASCC) Risk Index score of less than 21[C](33)(35). []V. Isolation required (eg, tuberculosis that requires isolation, Ebola infection)[D](36)(37)(38)(39)(40) []. Gangrene that requires treatment beyond emergency or observation level care(41)(42) []VII. Antitoxin administration and ongoing observation required (eg, tetanus, botulism)(43)(44) []. Suspected infection with rapid progression or severe symptoms as indicated by ANY ONE of the following(45): []a. Streptococcal or staphylococcal toxic shock(46) []b. Diphtheria(47) []c. Hantavirus(48) []d. Severe acute respiratory syndrome(8)(49) []e. Anthrax(50) []f. Ebola[D](36)(37)(38) []g. Necrotizing soft tissue infection(41)(42) []h. Plague(50) []i. Other suspected infection that requires care beyond emergency or observation level care []VII. Severe adverse drug or systemic toxin reaction as indicated by ANY ONE of the following(24): []a. Serotonin syndrome(51)(52) []b. Neuroleptic malignant syndrome(51)(52) []c. Cholinergic syndrome with severe symptoms (eg, bronchorrhea, weakness , mental status changes, seizures)(53) []d. Anticholinergic syndrome []e. Sympathetic syndrome with severe symptoms (eg, seizures, mental status changes, cardiac dysrhythmias) []f. Other severe adverse drug or systemic toxin reaction that remains after emergency or observation level care (as appropriate) [X]VIII. Allergic reaction with severe symptoms (not responsive to emergency or observation care treatment as appropriate), including ANY ONE of the following(54): []a. Airway edema (pharyngeal, epiglottic, or laryngeal edema) []b. Stridor [X]c. Respiratory failure []d. Bronchospasm []e. Hypotension []IX. Environmental emergency (not responsive to emergency or observation care treatment as appropriate) as indicated by ANY ONE of the following(55)(56): []a. Hyperthermia []b. Heat stroke []c. Heat exhaustion []d. Hypothermia (temperature less than 95 degrees F (35 degrees C) rectal) (57) []e. Electrocution(58) []X. Complications of transplanted organ (ie, not covered elsewhere)[E] indicated by ANY ONE of the following(59): []a. Acute graft rejection (or graft vs. host disease)[F] requiring inpatient management (eg, intravenous immunosuppression)(60)(61)(62)( 63) []b. Acute failure of transplanted organ necessitating inpatient care (eg, cannot be managed in other setting) []c. Infection requiring inpatient management (eg, Hemodynamic instability, need for intravenous antimicrobial treatment)(64)(65) []d. Other complication of transplanted organ requiring inpatient management []XI. Systemic or Infectious Condition condition, symptom, or finding for which emergency and observation care have failed or are not considered appropriate. See General Criteria: Observation Care, General Admission Criteria or Pediatric General Admission Criteria guideline as appropriate. The original [facility] content created by [facility] has been revised. The portions of the content which have been revised are identified through the use of italic text or in bold and [facility] has neither reviewed nor approved the modified material. All other unmodified content is copyright [facility]. Please see references footnoted in the original [facility] edition 2016 Admission Criteria Met?: Yes ADAM CARPENTER Oct 25, 2016 04:34
[2016-10-25] MEDS: AMINO AC 3%/ELECTROLYTE/GLYCER 1,000 ML IV SCH (05:11)
[2016-10-25 05:14] LABS: BASO % 0 % (0-3); EOS % 0 % (0-3); HEMATOCRIT 36.3 % (36.0-47.0); HEMOGLOBIN 11.5 g/dL (12.0-15.5); LYMPH # 1.1 x10^3/uL (1.0-4.8); LYMPH % 9 % (24-48); MEAN CORPUSCULAR HEMOGLOBIN 25 pg (25-35); MEAN CORPUSCULAR HGB CONC 32 g/dL (31-37); MEAN CORPUSCULAR VOLUME 79 fL (79-100); MONO % 3 % (0-9); NEUT % 88 % (31-73); PLATELET COUNT 152 x10^3/uL (140-400); RED BLOOD COUNT 4.58 x10^6/uL (3.50-5.40); RED CELL DISTRIBUTION WIDTH 18.1 % (11.5-14.5); WHITE BLOOD COUNT 12.8 x10^3/uL (4.0-11.0)
[2016-10-25 05:38] LABS: CALCIUM 8.9 mg/dL (8.5-10.1); CREATININE 0.7 mg/dL (0.6-1.0); GFR 103.3; POTASSIUM 3.5 mmol/L (3.5-5.1)
[2016-10-25] MEDS: hydrALAZINE 20 MG/ML VIAL. IVP PRN ×3 (05:44→22:22)
[2016-10-25 08:12] LABS: HCO3 ABG 22 mmol/L (21-28); PCO2 ABG 29 mmHg (35-46); PO2 ABG 84 mmHg (65-108); SAT O2 ABG 96 % (92-99)
[2016-10-25 08:15] LABS: FIO2 ABG 40
[2016-10-25] MEDS: MIDAZOLAM PREMIX 100 ML IV PRN ×2 (08:32→17:40)
--- NOTE | 2016-10-25 08:56 | PDOC ---
PULMONARY PROGRESS NOTES Subjective ON VENT SEDATED Vitals Vital Signs Date Time Temp Pulse Resp B/P (MAP) Pulse Ox O2 Delivery O2 Flow Rate FiO2 10/25/16 07:37 98 Ventilator 10/25/16 07:00 80 16 150/80 (103) 10/25/16 04:20 98.8 98.8 10/24/16 07:59 15.0 HEENT: Other (TONGUE) Lungs: Clear Cardiovascular: S1, S2 Abdomen: Soft Neuro Exam: Alert Extremities: No Edema Skin: Warm Labs Laboratory Tests Test 10/24/16 05:40 10/24/16 07:45 10/24/16 10:00 10/25/16 04:20 White Blood Count 9.4 x10^3/uL (4.0-11.0) 12.8 x10^3/uL (4.0-11.0) Red Blood Count 5.26 x10^6/uL (3.50-5.40) 4.58 x10^6/uL (3.50-5.40) Hemoglobin 13.3 g/dL (12.0-15.5) 11.5 g/dL (12.0-15.5) Hematocrit 42.3 % (36.0-47.0) 36.3 % (36.0-47.0) Mean Corpuscular Volume 80 fL (79-100) 79 fL (79-100) Mean Corpuscular Hemoglobin 25 pg (25-35) 25 pg (25-35) Mean Corpuscular Hemoglobin Concent 32 g/dL (31-37) 32 g/dL (31-37) Red Cell Distribution Width 18.3 % (11.5-14.5) 18.1 % (11.5-14.5) Platelet Count 146 x10^3/uL (140-400) 152 x10^3/uL (140-400) Neutrophils (%) (Auto) 75 % (31-73) 88 % (31-73) Lymphocytes (%) (Auto) 17 % (24-48) 9 % (24-48) Monocytes (%) (Auto) 7 % (0-9) 3 % (0-9) Eosinophils (%) (Auto) 1 % (0-3) 0 % (0-3) Basophils (%) (Auto) 0 % (0-3) 0 % (0-3) Neutrophils # (Auto) 7.0 x10^3uL (1.8-7.7) 11.2 x10^3uL (1.8-7.7) Lymphocytes # (Auto) 1.6 x10^3/uL (1.0-4.8) 1.1 x10^3/uL (1.0-4.8) Monocytes # (Auto) 0.7 x10^3/uL (0.0-1.1) 0.4 x10^3/uL (0.0-1.1) Eosinophils # (Auto) 0.1 x10^3/uL (0.0-0.7) 0.0 x10^3/uL (0.0-0.7) Basophils # (Auto) 0.0 x10^3/uL (0.0-0.2) 0.0 x10^3/uL (0.0-0.2) Prothrombin Time 11.9 SEC (11.7-14.0) Prothromb Time International Ratio 0.9 (0.8-1.1) Activated Partial Thromboplast Time 26 SEC (24-38) Sodium Level 142 mmol/L (136-145) 139 mmol/L (136-145) Potassium Level 3.8 mmol/L (3.5-5.1) 3.5 mmol/L (3.5-5.1) Chloride Level 107 mmol/L (98-107) 105 mmol/L (98-107) Carbon Dioxide Level 30 mmol/L (21-32) 23 mmol/L (21-32) Anion Gap 5 (6-14) 11 (6-14) Blood Urea Nitrogen 14 mg/dL (7-20) 14 mg/dL (7-20) Creatinine 0.6 mg/dL (0.6-1.0) 0.7 mg/dL (0.6-1.0) Estimated GFR (Cockcroft-Gault) 123.4 103.3 BUN/Creatinine Ratio 23 (6-20) Glucose Level 109 mg/dL (70-99) 147 mg/dL (70-99) Calcium Level 8.6 mg/dL (8.5-10.1) 8.9 mg/dL (8.5-10.1) Total Bilirubin 0.5 mg/dL (0.2-1.0) Aspartate Amino Transf (AST/SGOT) 17 U/L (15-37) Alanine Aminotransferase (ALT/SGPT) 35 U/L (14-59) Alkaline Phosphatase 96 U/L (46-116) Total Protein 7.1 g/dL (6.4-8.2) Albumin 3.5 g/dL (3.4-5.0) Albumin/Globulin Ratio 1.0 (1.0-1.7) O2 Saturation 98 % (92-99) Arterial Blood pH 7.39 (7.35-7.45) Arterial Blood pCO2 at Patient Temp 42 mmHg (35-46) Arterial Blood pO2 at Patient Temp 130 mmHg (65-108) Arterial Blood HCO3 25 mmol/L (21-28) Arterial Blood Base Excess 0 mmol/L (-3-3) FiO2 50 Nasal Screen MRSA (PCR) Negative (Negative) Test 10/25/16 08:10 O2 Saturation 96 % (92-99) Arterial Blood pH 7.50 (7.35-7.45) Arterial Blood pCO2 at Patient Temp 29 mmHg (35-46) Arterial Blood pO2 at Patient Temp 84 mmHg (65-108) Arterial Blood HCO3 22 mmol/L (21-28) Arterial Blood Base Excess 0 mmol/L (-3-3) FiO2 40 Laboratory Tests Test 10/24/16 10:00 10/25/16 04:20 10/25/16 08:10 Nasal Screen MRSA (PCR) Negative (Negative) White Blood Count 12.8 x10^3/uL (4.0-11.0) Red Blood Count 4.58 x10^6/uL (3.50-5.40) Hemoglobin 11.5 g/dL (12.0-15.5) Hematocrit 36.3 % (36.0-47.0) Mean Corpuscular Volume 79 fL (79-100) Mean Corpuscular Hemoglobin 25 pg (25-35) Mean Corpuscular Hemoglobin Concent 32 g/dL (31-37) Red Cell Distribution Width 18.1 % (11.5-14.5) Platelet Count 152 x10^3/uL (140-400) Neutrophils (%) (Auto) 88 % (31-73) Lymphocytes (%) (Auto) 9 % (24-48) Monocytes (%) (Auto) 3 % (0-9) Eosinophils (%) (Auto) 0 % (0-3) Basophils (%) (Auto) 0 % (0-3) Neutrophils # (Auto) 11.2 x10^3uL (1.8-7.7) Lymphocytes # (Auto) 1.1 x10^3/uL (1.0-4.8) Monocytes # (Auto) 0.4 x10^3/uL (0.0-1.1) Eosinophils # (Auto) 0.0 x10^3/uL (0.0-0.7) Basophils # (Auto) 0.0 x10^3/uL (0.0-0.2) Sodium Level 139 mmol/L (136-145) Potassium Level 3.5 mmol/L (3.5-5.1) Chloride Level 105 mmol/L (98-107) Carbon Dioxide Level 23 mmol/L (21-32) Anion Gap 11 (6-14) Blood Urea Nitrogen 14 mg/dL (7-20) Creatinine 0.7 mg/dL (0.6-1.0) Estimated GFR (Cockcroft-Gault) 103.3 Glucose Level 147 mg/dL (70-99) Calcium Level 8.9 mg/dL (8.5-10.1) O2 Saturation 96 % (92-99) Arterial Blood pH 7.50 (7.35-7.45) Arterial Blood pCO2 at Patient Temp 29 mmHg (35-46) Arterial Blood pO2 at Patient Temp 84 mmHg (65-108) Arterial Blood HCO3 22 mmol/L (21-28) Arterial Blood Base Excess 0 mmol/L (-3-3) FiO2 40 Medications Active Scripts Medications Dose Route/Sig Max Daily Dose Days Date Category Prednisone 50 Mg Tablet 1 Tab PO DAILY 04/14/16 Rx Cyclobenzaprine Hcl 5 Mg Tablet 1 Tab PO TID 10/10/15 Rx Tylenol With Codeine #3 Tablet (Acetaminophen/Codeine Phosphate) 1 Each Tablet 1 Tab PO PRN Q6HRS PRN 10/10/15 Rx Prednisone 50 Mg Tablet 1 Tab PO DAILY 09/23/15 Rx Amlodipine Besylate 5 Mg Tablet 5 Mg PO DAILY 09/23/15 Rx Ventolin Hfa Inhaler (Albuterol Sulfate) 18 Gm Hfa.aer.ad 2 Puff INH Q4HRS 09/23/15 Rx Hydrocodone-Apap 5-325 (Hydrocodone Bit/Acetaminophen) 1 Each Tablet 1 Tab PO PRN Q6HRS PRN 30 04/21/14 Rx Microzide (Hydrochlorothiazide) 12.5 Mg Capsule 12.5 Mg PO DAILY 04/21/14 Rx Cozaar (Losartan Potassium) 25 Mg Tablet 25 Mg PO DAILY 04/21/14 Rx Impression . 1. Acute respiratory failure secondary to angioedema. 2. History of lisinopril-induced angioedema. 3. Hypertension. 4. Chronic obstructive pulmonary disease with possible asthma component. 5. Diverticulitis. 6. History of diverticulosis. Plan . PT NOT READY FOR EXTUBATION, NO AIRLEAK AROUND TRACH WITH CUFF DOWN 1. Continue mechanical support. 2. Initiate tube feeding in the morning. 3. We will evaluate on a daily basis. 4. DVT and GI prophylaxis. 5. START TUBE FEEDING [employer] MD Oct 25, 2016 08:56
--- NOTE | 2016-10-25 10:36 | PDOC ---
PROGRESS NOTES Subjective Subjective on vent ,sedated Objective Objective Vital Signs Date Time Temp Pulse Resp B/P (MAP) Pulse Ox O2 Delivery O2 Flow Rate FiO2 10/25/16 10:00 82 16 149/81 (103) 98 Ventilator 10/25/16 08:00 98.8 98.8 10/24/16 07:59 15.0 Intake and Output 10/25/16 07:00 Intake Total 2148 ml Output Total 1743 ml Balance 405 ml Intake Oral 0 ml Blood Product IV Normal Saline Flush 2148 ml Output Urine Total 1743 ml Physical Exam Physical Exam tongue swollen, ET tube inplace Abdomen: Soft, No tenderness Heart: Regular rate Extremities: No clubbing, No cyanosis Lungs: Normal air movement Diagnosis Problem List Problems Medical Problems: (1) Angioedema Status: Acute Assessment Assessment Problems Medical Problems: (1) Angioedema Status: Acute FINAL IMPRESSION: 1. Idiopathic angioedema. 2. Hypertension. 3. On vent for airway protection PLAN: tube feedings gi protection dvt prevention. iv solumedrol. At this time was admit to the hospital ICU, intubated. The patient was given epinephrine, Benadryl, Solu-Medrol and FFP,needing ventilatory support. GI prophylaxis. DVT prophylaxis. We will have Pulmonology consult, Dermatology consult. Problems: Plan Plan of Care Problems Medical Problems: (1) Angioedema Status: Acute Comment Review of Relevant I have reviewed the following items tu (where applicable) has been applied. Labs Laboratory Tests Test 10/25/16 04:20 10/25/16 08:10 White Blood Count 12.8 x10^3/uL (4.0-11.0) Red Blood Count 4.58 x10^6/uL (3.50-5.40) Hemoglobin 11.5 g/dL (12.0-15.5) Hematocrit 36.3 % (36.0-47.0) Mean Corpuscular Volume 79 fL (79-100) Mean Corpuscular Hemoglobin 25 pg (25-35) Mean Corpuscular Hemoglobin Concent 32 g/dL (31-37) Red Cell Distribution Width 18.1 % (11.5-14.5) Platelet Count 152 x10^3/uL (140-400) Neutrophils (%) (Auto) 88 % (31-73) Lymphocytes (%) (Auto) 9 % (24-48) Monocytes (%) (Auto) 3 % (0-9) Eosinophils (%) (Auto) 0 % (0-3) Basophils (%) (Auto) 0 % (0-3) Neutrophils # (Auto) 11.2 x10^3uL (1.8-7.7) Lymphocytes # (Auto) 1.1 x10^3/uL (1.0-4.8) Monocytes # (Auto) 0.4 x10^3/uL (0.0-1.1) Eosinophils # (Auto) 0.0 x10^3/uL (0.0-0.7) Basophils # (Auto) 0.0 x10^3/uL (0.0-0.2) Sodium Level 139 mmol/L (136-145) Potassium Level 3.5 mmol/L (3.5-5.1) Chloride Level 105 mmol/L (98-107) Carbon Dioxide Level 23 mmol/L (21-32) Anion Gap 11 (6-14) Blood Urea Nitrogen 14 mg/dL (7-20) Creatinine 0.7 mg/dL (0.6-1.0) Estimated GFR (Cockcroft-Gault) 103.3 Glucose Level 147 mg/dL (70-99) Calcium Level 8.9 mg/dL (8.5-10.1) O2 Saturation 96 % (92-99) Arterial Blood pH 7.50 (7.35-7.45) Arterial Blood pCO2 at Patient Temp 29 mmHg (35-46) Arterial Blood pO2 at Patient Temp 84 mmHg (65-108) Arterial Blood HCO3 22 mmol/L (21-28) Arterial Blood Base Excess 0 mmol/L (-3-3) FiO2 40 Medications Current Medications Amino Acids/ Glycerin/ Electrolytes 1,000 ml @ 100 mls/hr Q10H IV Last administered on 10/25/16 05:11; Start 10/24/16 at 16:45 Clonidine HCl (Catapres Tts-1) 1 patch WEEKLY TD Last administered on 10/24/16 18:17; Start 10/24/16 at 18:00 Enoxaparin Sodium (Lovenox 40mg Syringe) 40 mg Q24H SQ Last administered on 10/24 19:45; Start 10/24/16 at 20:00 Enoxaparin Sodium (Lovenox Per Pharmacy Prophylaxis Dosing) 1 each PRN DAILY PRN MC SEE COMMENTS; Start 10/24/16 at 19:00 Famotidine (Pepcid) 20 mg QHS IVP Last administered on 10/24/16 21:00; Start at 21:00 Hydralazine HCl (Apresoline) 10 mg PRN Q4HRS PRN IVP ELEVATED BP, SEE COMMENTS Last administered on 10/25/16 05:44; Start 10/24/16 at 11:45 Methylprednisolone Sodium Succinate (SOLU-Medrol 125MG VIAL) 125 mg Q8H IV Last administered on 10/25/16 03:14; Start 10/24/16 at 11:00 Midazolam HCl 100 ml @ As Directed STK-MED ONCE IV ; Start 10/24/16 at 15:23; Stop 10/24/16 at 15:24; Status DC Midazolam HCl 100 ml @ 0 mls/hr CONT PRN IV SEE I/O RECORD Last administered on 10/25/16 08:32; Start 10/24/16 at 15:45 Vitals/I & O Vital Sign - Last 24 Hours 10/24/16 10/24/16 10/24/16 10/24/16 10:45 11:00 11:53 12:00 Temp 98.7 98.7 Pulse 78 74 78 Resp 16 16 B/P (MAP) 171/96 (121) 204/94 191/109 (136) Pulse Ox 99 O2 Delivery Ventilator Ventilator Ventilator 10/24/16 10/24/16 10/24/16 10/24/16 12:02 13:00 14:00 14:05 Pulse 78 78 Resp 16 16 B/P (MAP) 178/99 (125) 160/85 (110) Pulse Ox 100 99 O2 Delivery Ventilator Ventilator Ventilator Ventilator 10/24/16 10/24/16 10/24/16 10/24/16 15:00 15:53 16:00 17:00 Temp 98.0 98.0 Pulse 78 78 78 Resp 16 16 16 B/P (MAP) 165/87 (113) 168/85 (112) 165/86 (112) Pulse Ox 99 O2 Delivery Ventilator Ventilator Ventilator Ventilator 10/24/16 10/24/16 10/24/16 10/24/16 17:49 18:00 18:16 19:00 Pulse 78 80 106 Resp 16 B/P (MAP) 163/62 (95) 165/85 170/79 (109) Pulse Ox 99 99 O2 Delivery Ventilator Ventilator Ventilator 10/24/16 10/24/16 10/24/16 10/24/16 19:38 20:00 20:00 21:00 Temp 100.1 100.1 Pulse 108 104 B/P (MAP) 161/80 (107) 160/80 (106) Pulse Ox 98 99 99 O2 Delivery Ventilator Mechanical Ventilator Ventilator Ventilator 10/24/16 10/24/16 10/24/16 10/25/16 22:00 22:35 23:00 00:00 Pulse 96 86 Resp 16 16 B/P (MAP) 146/75 (98) 141/78 (99) Pulse Ox 100 99 99 O2 Delivery Ventilator Ventilator Ventilator Mechanical Ventilator 10/25/16 10/25/16 10/25/16 10/25/16 00:14 00:36 01:03 01:12 Temp 98.7 98.7 Pulse 82 80 79 Resp 16 16 16 B/P (MAP) 169/84 (112) 140/79 (99) 146/76 (99) Pulse Ox 100 99 98 99 O2 Delivery Ventilator Ventilator Ventilator Ventilator 10/25/16 10/25/16 10/25/16 10/25/16 02:01 03:00 03:10 04:18 Pulse 75 78 Resp 16 16 B/P (MAP) 144/77 (99) 144/81 (102) Pulse Ox 98 98 98 O2 Delivery Ventilator Ventilator Ventilator Mechanical Ventilator 10/25/16 10/25/16 10/25/16 10/25/16 04:20 05:03 05:09 05:30 Temp 98.8 98.8 Pulse 78 80 76 Resp 16 16 16 B/P (MAP) 163/90 (114) 143/83 (103) 171/92 (118) Pulse Ox 98 97 97 97 O2 Delivery Ventilator Ventilator Ventilator Ventilator 10/25/16 10/25/16 10/25/16 10/25/16 05:44 06:00 07:00 07:37 Pulse 80 86 80 Resp 16 16 B/P (MAP) 171/92 164/84 (110) 150/80 (103) Pulse Ox 98 98 98 O2 Delivery Ventilator Ventilator Ventilator 10/25/16 10/25/16 10/25/1617 08:00 09:00 09:24 10:00 Temp 98.8 98.8 Pulse 95 85 82 Resp 16 16 16 B/P (MAP) 174/90 (118) 150/90 (110) 149/81 (103) Pulse Ox 98 98 98 98 O2 Delivery Ventilator Ventilator Ventilator Ventilator Intake and Output 10/24/16 10/24/16 10/25/16 15:00 23:00 07:00 Intake Total 200 ml 0 ml 1948 ml Output Total 1120 ml 623 ml Balance 200 ml -1120 ml 1325 ml BONIFACIO SIDHU MD Oct 25, 2016 10:36
[2016-10-25 10:41] LABS: ANISOCYTOSIS PRESENT; PLT ESTIMATE ADEQUATE (ADEQUATE)
[2016-10-25] MEDS: amLODIPine BESYLATE 5 MG TABLET PO SCH (12:10)
--- NOTE | 2016-10-25 13:20 | RAD ---
Limited AP abdominal radiograph 10/25/2016 Indication: OG placement. Comparison: 10/31/2009 abdominal radiograph, AP chest radiograph 10/24/2016. Findings: Placement of a transesophageal gastric tube coursing below the level of the hemidiaphragms with the distal tip overlying the gastric body and the proximal side port also overlying the gastric body. Impression: Transesophageal gastric tube with distal tip and side-port overlying the gastric body.
[2016-10-25] MEDS: fentaNYL PF VIAL 100 MCG/2 ML VIAL IV PRN (22:18)
[2016-10-25] MEDS: FAMOTIDINE 20 MG/2 ML VIAL IVP SCH (22:19)
[2016-10-25] MEDS: ENOXAPARIN 40 MG/0.4 ML SYRINGE. SQ SCH (22:20)
[2016-10-26] VITALS (24 sets, daily range): BP systolic 117–174; BP diastolic 67–89
[2016-10-26] MEDS: MIDAZOLAM PREMIX 100 ML IV PRN ×3 (02:05→22:25)
[2016-10-26] MEDS: methylPREDNISolone SOD SUCC PF 125 MG/2 ML VIAL. IV SCH ×3 (04:48→19:56)
[2016-10-26 07:10] LABS: HCO3 ABG 21 mmol/L (21-28); PCO2 ABG 28 mmHg (35-46); PH ABG 7.49 (7.35-7.45); PO2 ABG 72 mmHg (65-108); SAT O2 ABG 95 % (92-99)
[2016-10-26 07:39] LABS: FIO2 ABG 40
--- NOTE | 2016-10-26 08:22 | PDOC ---
PROGRESS NOTES Subjective Subjective on vent ,tongue still swollen. Objective Objective Vital Signs Date Time Temp Pulse Resp B/P (MAP) Pulse Ox O2 Delivery O2 Flow Rate FiO2 10/26/16 08:00 74 16 149/81 (103) 98 Ventilator 10/26/16 07:00 98.2 98.2 Intake and Output 10/26/16 07:00 Intake Total 2954 ml Output Total 1700 ml Balance 1254 ml Intake Oral 0 ml IV Total 2201 ml Tube Feeding 593 ml Other 160 ml Output Urine Total 1700 ml Gastric Drainage Total 0 ml Physical Exam Physical Exam tongue swollen, ET tube inplace Abdomen: Soft, No tenderness Heart: Regular rate Extremities: No clubbing, No cyanosis Lungs: Normal air movement Skin: No breakdown Diagnosis Problem List Problems Medical Problems: (1) Angioedema Status: Acute Assessment Assessment Problems Medical Problems: (1) Angioedema Status: Acute FINAL IMPRESSION: 1. Idiopathic angioedema. 2. Hypertension. 3. On vent for airway protection PLAN: labs reviewed. continue vent management, not ready for extubation,tongue still swollen tube feedings gi protection dvt prevention. iv solumedrol. At this time was admit to the hospital ICU, intubated. The patient was given epinephrine, Benadryl, Solu-Medrol and FFP,needing ventilatory support. GI prophylaxis. DVT prophylaxis. We will have Pulmonology consult, Dermatology consult. Problems: Plan Plan of Care Problems Medical Problems: (1) Angioedema Status: Acute Comment Review of Relevant I have reviewed the following items tu (where applicable) has been applied. Labs Laboratory Tests Test 10/26/16 08:00 O2 Saturation 95 % (92-99) Arterial Blood pH 7.49 (7.35-7.45) Arterial Blood pCO2 at Patient Temp 28 mmHg (35-46) Arterial Blood pO2 at Patient Temp 72 mmHg (65-108) Arterial Blood HCO3 21 mmol/L (21-28) Arterial Blood Base Excess -1 mmol/L (-3-3) FiO2 40 Medications Current Medications Amlodipine Besylate (Norvasc) 5 mg DAILY PO Last administered on 10/25/16 12:10 ; Start 10/25/16 at 11:00 Fentanyl Citrate (Fentanyl 2ml Vial) 12.5 mcg PRN Q3HRS PRN IV PAIN Last administered on 10/25/16 22:18; Start 10/25/16 at 18:15 Vitals/I & O Vital Sign - Last 24 Hours 10/25/16 10/25/16 10/25/16 10/25/16 09:00 09:24 10:00 11:00 Pulse 85 82 77 Resp 16 16 16 B/P (MAP) 150/90 (110) 149/81 (103) 150/83 (105) Pulse Ox 98 98 98 98 O2 Delivery Ventilator Ventilator Ventilator Ventilator 10/25/16 10/25/16 10/25/16 10/25/16 11:35 12:00 12:00 12:10 Temp 98.4 98.4 Pulse 79 77 Resp 16 B/P (MAP) 153/83 (106) 153/83 Pulse Ox 98 98 O2 Delivery Ventilator Mechanical Ventilator Ventilator 10/25/16 10/25/16 10/25/16 10/25/16 13:00 13:03 14:00 15:00 Pulse 88 74 72 Resp 16 16 16 B/P (MAP) 188/86 (120) 152/77 (102) 168/87 (114) Pulse Ox 98 98 98 99 O2 Delivery Ventilator Ventilator Ventilator Ventilator 10/25/16 10/25/16 10/25/16 10/25/16 15:15 16:00 16:00 16:56 Temp 98.3 98.3 Pulse 89 96 Resp 16 B/P (MAP) 142/75 (97) 192/98 Pulse Ox 97 98 O2 Delivery Ventilator Ventilator Mechanical Ventilator 10/25/16 10/25/16 10/25/16 10/25/16 17:00 17:15 18:00 19:00 Pulse 90 88 80 Resp 16 16 23 B/P (MAP) 170/85 (113) 138/66 (90) 154/70 (98) Pulse Ox 98 99 98 98 O2 Delivery Ventilator Ventilator Ventilator Ventilator 10/25/16 10/25/16 10/25/16 10/25/16 20:00 20:00 20:07 21:00 Temp 98.4 98.4 Pulse 84 118 Resp 20 27 B/P (MAP) 154/75 (101) 197/93 (127) Pulse Ox 98 97 96 O2 Delivery Ventilator Mechanical Ventilator Ventilator Ventilator 10/25/16 10/25/16 10/25/16 10/25/16 22:00 22:22 23:00 23:30 Pulse 112 109 82 Resp 22 16 B/P (MAP) 176/95 (122) 176/95 142/79 (100) Pulse Ox 98 99 99 O2 Delivery Ventilator Ventilator Ventilator 10/26/16 10/26/16 10/26/16 10/26/16 00:00 00:00 01:00 02:00 Temp 98.7 98.7 Pulse 76 72 86 Resp 16 16 16 B/P (MAP) 144/83 (103) 153/87 (109) 174/89 (117) Pulse Ox 99 99 99 O2 Delivery Mechanical Ventilator Ventilator Ventilator Ventilator 10/26/16 10/26/16 10/26/16 10/26/16 03:00 03:11 04:00 04:00 Temp 98.9 98.9 Pulse 70 68 Resp 16 16 B/P (MAP) 144/77 (99) 174/86 (115) Pulse Ox 99 99 99 O2 Delivery Ventilator Ventilator Mechanical Ventilator Ventilator 10/26/16 10/26/16 10/26/16 10/26/16 05:00 05:30 06:00 06:58 Pulse 70 76 Resp 16 16 B/P (MAP) 172/89 (116) 133/75 (94) Pulse Ox 99 98 98 98 O2 Delivery Ventilator Ventilator Ventilator Ventilator 10/26/16 10/26/16 07:00 08:00 Temp 98.2 98.2 Pulse 72 74 Resp 15 16 B/P (MAP) 119/78 (92) 149/81 (103) Pulse Ox 98 98 O2 Delivery Ventilator Ventilator Intake and Output 10/25/16 10/25/16 10/26/16 15:00 23:00 07:00 Intake Total 2479 ml 475 ml Output Total 990 ml 410 ml 300 ml Balance -990 ml 2069 ml 175 ml BONIFACIO SIDHU MD Oct 26, 2016 08:22
[2016-10-26] MEDS: amLODIPine BESYLATE 5 MG TABLET PO SCH (08:44)
--- NOTE | 2016-10-26 14:25 | PDOC ---
PULMONARY PROGRESS NOTES Subjective ON VENT SEDATED Vitals Vital Signs Date Time Temp Pulse Resp B/P (MAP) Pulse Ox O2 Delivery O2 Flow Rate FiO2 10/26/16 14:08 66 15 121/77 (92) 98 Ventilator 10/26/16 11:47 15.0 10/26/16 10:56 98.3 98.3 HEENT: Other (TONGUE) Lungs: Clear Cardiovascular: S1, S2 Abdomen: Soft Neuro Exam: Alert Extremities: No Edema Skin: Warm Labs Laboratory Tests Test 10/25/16 04:20 10/25/16 08:10 10/26/16 08:00 White Blood Count 12.8 x10^3/uL (4.0-11.0) Red Blood Count 4.58 x10^6/uL (3.50-5.40) Hemoglobin 11.5 g/dL (12.0-15.5) Hematocrit 36.3 % (36.0-47.0) Mean Corpuscular Volume 79 fL (79-100) Mean Corpuscular Hemoglobin 25 pg (25-35) Mean Corpuscular Hemoglobin Concent 32 g/dL (31-37) Red Cell Distribution Width 18.1 % (11.5-14.5) Platelet Count 152 x10^3/uL (140-400) Neutrophils (%) (Auto) 88 % (31-73) Lymphocytes (%) (Auto) 9 % (24-48) Monocytes (%) (Auto) 3 % (0-9) Eosinophils (%) (Auto) 0 % (0-3) Basophils (%) (Auto) 0 % (0-3) Neutrophils # (Auto) 11.2 x10^3uL (1.8-7.7) Lymphocytes # (Auto) 1.1 x10^3/uL (1.0-4.8) Monocytes # (Auto) 0.4 x10^3/uL (0.0-1.1) Eosinophils # (Auto) 0.0 x10^3/uL (0.0-0.7) Basophils # (Auto) 0.0 x10^3/uL (0.0-0.2) Segmented Neutrophils % 75 % (35-66) Band Neutrophils % 14 % (0-9) Lymphocytes % 8 % (24-48) Monocytes % 3 % (0-10) Platelet Estimate Adequate (ADEQUATE) Anisocytosis Present Sodium Level 139 mmol/L (136-145) Potassium Level 3.5 mmol/L (3.5-5.1) Chloride Level 105 mmol/L (98-107) Carbon Dioxide Level 23 mmol/L (21-32) Anion Gap 11 (6-14) Blood Urea Nitrogen 14 mg/dL (7-20) Creatinine 0.7 mg/dL (0.6-1.0) Estimated GFR (Cockcroft-Gault) 103.3 Glucose Level 147 mg/dL (70-99) Calcium Level 8.9 mg/dL (8.5-10.1) O2 Saturation 96 % (92-99) 95 % (92-99) Arterial Blood pH 7.50 (7.35-7.45) 7.49 (7.35-7.45) Arterial Blood pCO2 at Patient Temp 29 mmHg (35-46) 28 mmHg (35-46) Arterial Blood pO2 at Patient Temp 84 mmHg (65-108) 72 mmHg (65-108) Arterial Blood HCO3 22 mmol/L (21-28) 21 mmol/L (21-28) Arterial Blood Base Excess 0 mmol/L (-3-3) -1 mmol/L (-3-3) FiO2 40 40 Laboratory Tests Test 10/26/16 08:00 O2 Saturation 95 % (92-99) Arterial Blood pH 7.49 (7.35-7.45) Arterial Blood pCO2 at Patient Temp 28 mmHg (35-46) Arterial Blood pO2 at Patient Temp 72 mmHg (65-108) Arterial Blood HCO3 21 mmol/L (21-28) Arterial Blood Base Excess -1 mmol/L (-3-3) FiO2 40 Medications Active Scripts Medications Dose Route/Sig Max Daily Dose Days Date Category Prednisone 50 Mg Tablet 1 Tab PO DAILY 04/14/16 Rx Cyclobenzaprine Hcl 5 Mg Tablet 1 Tab PO TID 10/10/15 Rx Tylenol With Codeine #3 Tablet (Acetaminophen/Codeine Phosphate) 1 Each Tablet 1 Tab PO PRN Q6HRS PRN 10/10/15 Rx Prednisone 50 Mg Tablet 1 Tab PO DAILY 09/23/15 Rx Amlodipine Besylate 5 Mg Tablet 5 Mg PO DAILY 09/23/15 Rx Ventolin Hfa Inhaler (Albuterol Sulfate) 18 Gm Hfa.aer.ad 2 Puff INH Q4HRS 09/23/15 Rx Hydrocodone-Apap 5-325 (Hydrocodone Bit/Acetaminophen) 1 Each Tablet 1 Tab PO PRN Q6HRS PRN 30 04/21/14 Rx Microzide (Hydrochlorothiazide) 12.5 Mg Capsule 12.5 Mg PO DAILY 04/21/14 Rx Cozaar (Losartan Potassium) 25 Mg Tablet 25 Mg PO DAILY 04/21/14 Rx Impression . 1. Acute respiratory failure secondary to angioedema. 2. History of lisinopril-induced angioedema. 3. Hypertension. 4. Chronic obstructive pulmonary disease with possible asthma component. 5. Diverticulitis. 6. History of diverticulosis. Plan . PT NOT READY FOR EXTUBATION, SLIGHT AIRLEAK AROUND TRACH WITH CUFF DOWN TUBE FEEDING HOPEFULLY EXTUBATE IN NEXT 24-48 CHINA GONGORA MD Oct 26, 2016 14:25
[2016-10-26] MEDS: FAMOTIDINE 20 MG/2 ML VIAL IVP SCH (19:57)
[2016-10-26] MEDS: ENOXAPARIN 40 MG/0.4 ML SYRINGE. SQ SCH (19:57)
[2016-10-26] MEDS ORDERED: ALBUTEROL SULFATE 2.5 MG/3 ML NEBU. NEB PRN (20:00)
[2016-10-26] MEDS: fentaNYL PF VIAL 100 MCG/2 ML VIAL IV PRN (20:24)
[2016-10-27] VITALS (22 sets, daily range): BP systolic 95–178; BP diastolic 45–90
[2016-10-27] MEDS: methylPREDNISolone SOD SUCC PF 125 MG/2 ML VIAL. IV SCH ×3 (03:19→20:54)
[2016-10-27 04:42] LABS: BASO % 0 % (0-3); EOS % 0 % (0-3); HEMOGLOBIN 11.5 g/dL (12.0-15.5); LYMPH # 0.9 x10^3/uL (1.0-4.8); LYMPH % 7 % (24-48); MEAN CORPUSCULAR HEMOGLOBIN 25 pg (25-35); MEAN CORPUSCULAR HGB CONC 32 g/dL (31-37); MEAN CORPUSCULAR VOLUME 79 fL (79-100); MONO % 6 % (0-9); NEUT % 87 % (31-73); PLATELET COUNT 202 x10^3/uL (140-400); RED BLOOD COUNT 4.57 x10^6/uL (3.50-5.40); RED CELL DISTRIBUTION WIDTH 18.3 % (11.5-14.5); WHITE BLOOD COUNT 12.8 x10^3/uL (4.0-11.0)
[2016-10-27 06:01] LABS: CREATININE 0.7 mg/dL (0.6-1.0); GFR 103.3; POTASSIUM 3.4 mmol/L (3.5-5.1)
--- NOTE | 2016-10-27 08:42 | PDOC ---
PULMONARY PROGRESS NOTES Subjective ON VENT SEDATED Vitals Vital Signs Date Time Temp Pulse Resp B/P (MAP) Pulse Ox O2 Delivery O2 Flow Rate FiO2 10/27/16 07:54 99 Ventilator 10/27/16 06:00 94 16 95/45 (62) 10/27/16 04:00 98.8 98.8 10/26/16 20:54 15.0 HEENT: Other (TONGUE NOT PROTUDING FROM MOUTH MUCH SMALLER) Lungs: Clear Cardiovascular: S1, S2 Abdomen: Soft Extremities: No Edema Skin: Warm Labs Laboratory Tests Test 10/26/16 08:00 10/27/16 04:00 10/27/16 05:00 O2 Saturation 95 % (92-99) Arterial Blood pH 7.49 (7.35-7.45) Arterial Blood pCO2 at Patient Temp 28 mmHg (35-46) Arterial Blood pO2 at Patient Temp 72 mmHg (65-108) Arterial Blood HCO3 21 mmol/L (21-28) Arterial Blood Base Excess -1 mmol/L (-3-3) FiO2 40 White Blood Count 12.8 x10^3/uL (4.0-11.0) Red Blood Count 4.57 x10^6/uL (3.50-5.40) Hemoglobin 11.5 g/dL (12.0-15.5) Hematocrit 36.0 % (36.0-47.0) Mean Corpuscular Volume 79 fL (79-100) Mean Corpuscular Hemoglobin 25 pg (25-35) Mean Corpuscular Hemoglobin Concent 32 g/dL (31-37) Red Cell Distribution Width 18.3 % (11.5-14.5) Platelet Count 202 x10^3/uL (140-400) Neutrophils (%) (Auto) 87 % (31-73) Lymphocytes (%) (Auto) 7 % (24-48) Monocytes (%) (Auto) 6 % (0-9) Eosinophils (%) (Auto) 0 % (0-3) Basophils (%) (Auto) 0 % (0-3) Neutrophils # (Auto) 11.1 x10^3uL (1.8-7.7) Lymphocytes # (Auto) 0.9 x10^3/uL (1.0-4.8) Monocytes # (Auto) 0.7 x10^3/uL (0.0-1.1) Eosinophils # (Auto) 0.0 x10^3/uL (0.0-0.7) Basophils # (Auto) 0.0 x10^3/uL (0.0-0.2) Sodium Level 138 mmol/L (136-145) Potassium Level 3.4 mmol/L (3.5-5.1) Chloride Level 104 mmol/L (98-107) Carbon Dioxide Level 21 mmol/L (21-32) Anion Gap 13 (6-14) Blood Urea Nitrogen 22 mg/dL (7-20) Creatinine 0.7 mg/dL (0.6-1.0) Estimated GFR (Cockcroft-Gault) 103.3 Glucose Level 172 mg/dL (70-99) Calcium Level 9.0 mg/dL (8.5-10.1) Laboratory Tests Test 10/27/16 04:00 10/27/16 05:00 White Blood Count 12.8 x10^3/uL (4.0-11.0) Red Blood Count 4.57 x10^6/uL (3.50-5.40) Hemoglobin 11.5 g/dL (12.0-15.5) Hematocrit 36.0 % (36.0-47.0) Mean Corpuscular Volume 79 fL (79-100) Mean Corpuscular Hemoglobin 25 pg (25-35) Mean Corpuscular Hemoglobin Concent 32 g/dL (31-37) Red Cell Distribution Width 18.3 % (11.5-14.5) Platelet Count 202 x10^3/uL (140-400) Neutrophils (%) (Auto) 87 % (31-73) Lymphocytes (%) (Auto) 7 % (24-48) Monocytes (%) (Auto) 6 % (0-9) Eosinophils (%) (Auto) 0 % (0-3) Basophils (%) (Auto) 0 % (0-3) Neutrophils # (Auto) 11.1 x10^3uL (1.8-7.7) Lymphocytes # (Auto) 0.9 x10^3/uL (1.0-4.8) Monocytes # (Auto) 0.7 x10^3/uL (0.0-1.1) Eosinophils # (Auto) 0.0 x10^3/uL (0.0-0.7) Basophils # (Auto) 0.0 x10^3/uL (0.0-0.2) Sodium Level 138 mmol/L (136-145) Potassium Level 3.4 mmol/L (3.5-5.1) Chloride Level 104 mmol/L (98-107) Carbon Dioxide Level 21 mmol/L (21-32) Anion Gap 13 (6-14) Blood Urea Nitrogen 22 mg/dL (7-20) Creatinine 0.7 mg/dL (0.6-1.0) Estimated GFR (Cockcroft-Gault) 103.3 Glucose Level 172 mg/dL (70-99) Calcium Level 9.0 mg/dL (8.5-10.1) Medications Active Scripts Medications Dose Route/Sig Max Daily Dose Days Date Category Prednisone 50 Mg Tablet 1 Tab PO DAILY 04/14/16 Rx Cyclobenzaprine Hcl 5 Mg Tablet 1 Tab PO TID 10/10/15 Rx Tylenol With Codeine #3 Tablet (Acetaminophen/Codeine Phosphate) 1 Each Tablet 1 Tab PO PRN Q6HRS PRN 10/10/15 Rx Prednisone 50 Mg Tablet 1 Tab PO DAILY 09/23/15 Rx Amlodipine Besylate 5 Mg Tablet 5 Mg PO DAILY 09/23/15 Rx Ventolin Hfa Inhaler (Albuterol Sulfate) 18 Gm Hfa.aer.ad 2 Puff INH Q4HRS 09/23/15 Rx Hydrocodone-Apap 5-325 (Hydrocodone Bit/Acetaminophen) 1 Each Tablet 1 Tab PO PRN Q6HRS PRN 30 04/21/14 Rx Microzide (Hydrochlorothiazide) 12.5 Mg Capsule 12.5 Mg PO DAILY 04/21/14 Rx Cozaar (Losartan Potassium) 25 Mg Tablet 25 Mg PO DAILY 04/21/14 Rx Impression . 1. Acute respiratory failure secondary to angioedema. 2. History of lisinopril-induced angioedema. 3. Hypertension. 4. Chronic obstructive pulmonary disease with possible asthma component. 5. Diverticulitis. 6. History of diverticulosis. Plan . SPOKE WITH RT TRIAL IF AIR LEAKING AROUND TUBE CONTINUE OTHER SUPPORT FOR NOW TUBE FEEDING CH[facility] HERCULES MD Oct 27, 2016 08:42
[2016-10-27] MEDS: CHLORHEXIDINE 0.12% 15 ML MOUTHWASH. MM SCH ×2 (10:22→20:54)
[2016-10-27] MEDS: amLODIPine BESYLATE 5 MG TABLET PO SCH (10:34)
[2016-10-27] MEDS: hydrALAZINE 20 MG/ML VIAL. IVP PRN (11:57)
--- NOTE | 2016-10-27 12:21 | PDOC ---
PROGRESS NOTES Subjective Subjective swelling of tongue significantly down Objective Objective Vital Signs Date Time Temp Pulse Resp B/P (MAP) Pulse Ox O2 Delivery O2 Flow Rate FiO2 10/27/16 12:10 Mechanical Ventilator 10/27/16 12:00 98.0 57 16 178/88 (118) 99 98.0 10/26/16 20:54 15.0 Intake and Output 10/27/16 07:00 Intake Total 1497 ml Output Total 721 ml Balance 776 ml Intake Oral 0 ml IV Total 247 ml Tube Feeding 770 ml Other 480 ml Output Urine Total 721 ml Physical Exam Physical Exam tongue not swollen, ET tube in place Abdomen: Soft, No tenderness Heart: Regular rate Extremities: No clubbing, No cyanosis Lungs: Normal air movement Skin: No breakdown Diagnosis Problem List Problems Medical Problems: (1) Angioedema Status: Acute Assessment Assessment Problems Medical Problems: (1) Angioedema Status: Acute FINAL IMPRESSION: 1. Idiopathic angioedema. 2. Hypertension. 3. On vent for airway protection PLAN: spoke with pts mother continue vent management, ready for extubation,tongue is not swollen now, went weaning today tube feedings gi protection dvt prevention. iv solumedrol. At this time was admit to the hospital ICU, intubated. The patient was given epinephrine, Benadryl, Solu-Medrol and FFP,needing ventilatory support. GI prophylaxis. DVT prophylaxis. We will have Pulmonology consult, Dermatology consult. Problems: Plan Plan of Care Problems Medical Problems: (1) Angioedema Status: Acute Comment Review of Relevant I have reviewed the following items tu (where applicable) has been applied. Labs Laboratory Tests Test 10/27/16 04:00 10/27/16 05:00 White Blood Count 12.8 x10^3/uL (4.0-11.0) Red Blood Count 4.57 x10^6/uL (3.50-5.40) Hemoglobin 11.5 g/dL (12.0-15.5) Hematocrit 36.0 % (36.0-47.0) Mean Corpuscular Volume 79 fL (79-100) Mean Corpuscular Hemoglobin 25 pg (25-35) Mean Corpuscular Hemoglobin Concent 32 g/dL (31-37) Red Cell Distribution Width 18.3 % (11.5-14.5) Platelet Count 202 x10^3/uL (140-400) Neutrophils (%) (Auto) 87 % (31-73) Lymphocytes (%) (Auto) 7 % (24-48) Monocytes (%) (Auto) 6 % (0-9) Eosinophils (%) (Auto) 0 % (0-3) Basophils (%) (Auto) 0 % (0-3) Neutrophils # (Auto) 11.1 x10^3uL (1.8-7.7) Lymphocytes # (Auto) 0.9 x10^3/uL (1.0-4.8) Monocytes # (Auto) 0.7 x10^3/uL (0.0-1.1) Eosinophils # (Auto) 0.0 x10^3/uL (0.0-0.7) Basophils # (Auto) 0.0 x10^3/uL (0.0-0.2) Sodium Level 138 mmol/L (136-145) Potassium Level 3.4 mmol/L (3.5-5.1) Chloride Level 104 mmol/L (98-107) Carbon Dioxide Level 21 mmol/L (21-32) Anion Gap 13 (6-14) Blood Urea Nitrogen 22 mg/dL (7-20) Creatinine 0.7 mg/dL (0.6-1.0) Estimated GFR (Cockcroft-Gault) 103.3 Glucose Level 172 mg/dL (70-99) Calcium Level 9.0 mg/dL (8.5-10.1) Medications Current Medications Albuterol Sulfate (Ventolin Neb Soln) 2.5 mg PRN Q4HRS PRN NEB SHORTNESS OF BREATH Last administered on 10/26/16 19:51; Start 10/26/16 at 20:00 Chlorhexidine Gluconate (Peridex) 15 ml BID MM Last administered on 10/27/16 10 :22; Start 10/27/16 at 09:00 Methylprednisolone Sodium Succinate (SOLU-Medrol 125MG VIAL) 125 mg BID IV Last administered on 10/27/16 10:22; Start 10/27/16 at 09:00 Vitals/I & O Vital Sign - Last 24 Hours 10/26/16 10/26/16 10/26/16 10/26/16 13:10 13:11 14:08 15:17 Temp 99.0 99.0 Pulse 73 66 68 Resp 16 15 16 B/P (MAP) 144/79 (100) 121/77 (92) 144/81 (102) Pulse Ox 99 99 98 98 O2 Delivery Ventilator Ventilator Ventilator Ventilator 10/26/16 10/26/16 10/26/16 10/26/16 15:30 15:50 16:07 17:01 Pulse 66 64 Resp 15 15 B/P (MAP) 136/77 (96) 117/69 (85) Pulse Ox 99 98 98 O2 Delivery Mechanical Ventilator Ventilator Ventilator Ventilator O2 Flow Rate 15.0 10/26/16 10/26/16 10/26/16 10/26/16 17:43 18:06 19:00 19:34 Pulse 66 60 Resp 15 15 B/P (MAP) 140/70 (93) 130/72 (91) Pulse Ox 99 99 99 O2 Delivery Ventilator Ventilator Ventilator Mechanical Ventilator 10/26/16 10/26/16 10/26/16 10/26/16 19:41 20:00 20:24 20:54 Temp 98.2 98.2 Pulse 68 Resp 15 20 B/P (MAP) 143/89 (107) Pulse Ox 99 99 100 O2 Delivery Ventilator Ventilator Ventilator O2 Flow Rate 15.0 10/26/16 10/26/16 10/26/16 10/26/16 21:00 21:25 22:00 23:00 Pulse 64 58 54 Resp 15 15 14 B/P (MAP) 118/70 (86) 163/88 (113) 119/73 (88) Pulse Ox 99 99 100 100 O2 Delivery Ventilator Ventilator Ventilator Ventilator 10/27/16 10/27/16 10/27/16 10/27/16 00:00 00:05 00:07 01:00 Temp 98.6 98.6 Pulse 54 52 Resp 14 15 B/P (MAP) 133/73 (93) 144/80 (101) Pulse Ox 100 99 99 O2 Delivery Ventilator Mechanical Ventilator Ventilator Ventilator 10/27/16 10/27/16 10/27/16 10/27/16 01:14 02:20 03:00 03:25 Pulse 56 52 Resp 16 16 B/P (MAP) 125/71 (89) 142/77 (98) Pulse Ox 99 99 99 99 O2 Delivery Ventilator Ventilator Ventilator Ventilator 10/27/16 10/27/16 10/27/16 10/27/16 04:00 04:07 05:00 05:20 Temp 98.8 98.8 Pulse 48 92 Resp 16 16 B/P (MAP) 153/86 (108) 100/52 (68) Pulse Ox 99 100 99 O2 Delivery Ventilator Mechanical Ventilator Ventilator Ventilator 10/27/16 10/27/16 10/27/16 10/27/16 06:00 07:00 07:54 08:00 Temp 97.8 97.8 Pulse 94 50 52 Resp 16 16 16 B/P (MAP) 95/45 (62) 150/80 (103) 157/76 (103) Pulse Ox 98 99 99 98 O2 Delivery Ventilator Ventilator Ventilator Ventilator 10/27/16 10/27/16 10/27/16 10/27/16 08:48 09:00 09:41 10:00 Pulse 54 48 Resp 16 16 B/P (MAP) 174/90 (118) 164/66 (98) Pulse Ox 98 99 99 O2 Delivery Mechanical Ventilator Ventilator Ventilator Ventilator 10/27/16 10/27/16 10/27/16 10/27/16 10:34 11:33 11:57 12:00 Temp 98.0 98.0 Pulse 60 50 57 Resp 16 B/P (MAP) 164/77 190/88 178/88 (118) Pulse Ox 99 99 O2 Delivery Ventilator Ventilator 10/27/16 12:10 O2 Delivery Mechanical Ventilator Intake and Output 10/26/16 10/26/16 10/27/16 15:00 23:00 07:00 Intake Total 30 ml 663 ml 804 ml Output Total 292 ml 214 ml 215 ml Balance -262 ml 449 ml 589 ml BONIFACIO SIDHU MD Oct 27, 2016 12:21
[2016-10-27] MEDS ORDERED: POTASSIUM CHLORIDE 20 MEQ TABLET.ER. PO ONE (13:00)
[2016-10-27] MEDS ORDERED: POTASSIUM CHLORIDE 20 MEQ/15 ML ORAL LIQUID. PEG ONE (13:45)
[2016-10-27] MEDS: fentaNYL PF VIAL 100 MCG/2 ML VIAL IV PRN (19:55)
[2016-10-27] MEDS: PROPOFOL 100 ML IV PRN (20:54)
[2016-10-27] MEDS: FAMOTIDINE 20 MG/2 ML VIAL IVP SCH (20:54)
[2016-10-27] MEDS: ENOXAPARIN 40 MG/0.4 ML SYRINGE. SQ SCH (20:55)
[2016-10-28] VITALS (21 sets, daily range): BP systolic 110–176; BP diastolic 64–86
[2016-10-28] MEDS: fentaNYL PF VIAL 100 MCG/2 ML VIAL IV PRN ×4 (03:35→18:38)
[2016-10-28 04:12] LABS: BASO % 0 % (0-3); EOS % 0 % (0-3); HEMATOCRIT 36.7 % (36.0-47.0); HEMOGLOBIN 11.6 g/dL (12.0-15.5); LYMPH # 0.6 x10^3/uL (1.0-4.8); LYMPH % 5 % (24-48); MEAN CORPUSCULAR HEMOGLOBIN 25 pg (25-35); MEAN CORPUSCULAR HGB CONC 32 g/dL (31-37); MEAN CORPUSCULAR VOLUME 79 fL (79-100); MONO % 6 % (0-9); NEUT % 89 % (31-73); PLATELET COUNT 218 x10^3/uL (140-400); RED BLOOD COUNT 4.62 x10^6/uL (3.50-5.40); RED CELL DISTRIBUTION WIDTH 18.4 % (11.5-14.5)
[2016-10-28 04:27] LABS: CALCIUM 8.6 mg/dL (8.5-10.1); CREATININE 0.7 mg/dL (0.6-1.0); GFR 103.3; POTASSIUM 3.4 mmol/L (3.5-5.1)
[2016-10-28] MEDS: PROPOFOL 100 ML IV PRN (07:11)
--- NOTE | 2016-10-28 08:03 | PDOC ---
PULMONARY PROGRESS NOTES Subjective ON VENT SEDATED Vitals Vital Signs Date Time Temp Pulse Resp B/P (MAP) Pulse Ox O2 Delivery O2 Flow Rate FiO2 10/28/16 07:39 98 15.0 10/28/16 06:00 48 16 132/71 (91) Ventilator 10/28/16 00:00 99.0 99.0 HEENT: Other (TONGUE NOT PROTUDING FROM MOUTH MUCH SMALLER) Lungs: Clear Cardiovascular: S1, S2 Abdomen: Soft Extremities: No Edema Skin: Warm Labs Laboratory Tests Test 10/27/16 04:00 10/27/16 05:00 10/28/16 03:30 White Blood Count 12.8 x10^3/uL (4.0-11.0) 12.0 x10^3/uL (4.0-11.0) Red Blood Count 4.57 x10^6/uL (3.50-5.40) 4.62 x10^6/uL (3.50-5.40) Hemoglobin 11.5 g/dL (12.0-15.5) 11.6 g/dL (12.0-15.5) Hematocrit 36.0 % (36.0-47.0) 36.7 % (36.0-47.0) Mean Corpuscular Volume 79 fL (79-100) 79 fL (79-100) Mean Corpuscular Hemoglobin 25 pg (25-35) 25 pg (25-35) Mean Corpuscular Hemoglobin Concent 32 g/dL (31-37) 32 g/dL (31-37) Red Cell Distribution Width 18.3 % (11.5-14.5) 18.4 % (11.5-14.5) Platelet Count 202 x10^3/uL (140-400) 218 x10^3/uL (140-400) Neutrophils (%) (Auto) 87 % (31-73) 89 % (31-73) Lymphocytes (%) (Auto) 7 % (24-48) 5 % (24-48) Monocytes (%) (Auto) 6 % (0-9) 6 % (0-9) Eosinophils (%) (Auto) 0 % (0-3) 0 % (0-3) Basophils (%) (Auto) 0 % (0-3) 0 % (0-3) Neutrophils # (Auto) 11.1 x10^3uL (1.8-7.7) 10.8 x10^3uL (1.8-7.7) Lymphocytes # (Auto) 0.9 x10^3/uL (1.0-4.8) 0.6 x10^3/uL (1.0-4.8) Monocytes # (Auto) 0.7 x10^3/uL (0.0-1.1) 0.7 x10^3/uL (0.0-1.1) Eosinophils # (Auto) 0.0 x10^3/uL (0.0-0.7) 0.0 x10^3/uL (0.0-0.7) Basophils # (Auto) 0.0 x10^3/uL (0.0-0.2) 0.0 x10^3/uL (0.0-0.2) Sodium Level 138 mmol/L (136-145) 138 mmol/L (136-145) Potassium Level 3.4 mmol/L (3.5-5.1) 3.4 mmol/L (3.5-5.1) Chloride Level 104 mmol/L (98-107) 104 mmol/L (98-107) Carbon Dioxide Level 21 mmol/L (21-32) 24 mmol/L (21-32) Anion Gap 13 (6-14) 10 (6-14) Blood Urea Nitrogen 22 mg/dL (7-20) 23 mg/dL (7-20) Creatinine 0.7 mg/dL (0.6-1.0) 0.7 mg/dL (0.6-1.0) Estimated GFR (Cockcroft-Gault) 103.3 103.3 Glucose Level 172 mg/dL (70-99) 179 mg/dL (70-99) Calcium Level 9.0 mg/dL (8.5-10.1) 8.6 mg/dL (8.5-10.1) Laboratory Tests Test 10/28/16 03:30 White Blood Count 12.0 x10^3/uL (4.0-11.0) Red Blood Count 4.62 x10^6/uL (3.50-5.40) Hemoglobin 11.6 g/dL (12.0-15.5) Hematocrit 36.7 % (36.0-47.0) Mean Corpuscular Volume 79 fL (79-100) Mean Corpuscular Hemoglobin 25 pg (25-35) Mean Corpuscular Hemoglobin Concent 32 g/dL (31-37) Red Cell Distribution Width 18.4 % (11.5-14.5) Platelet Count 218 x10^3/uL (140-400) Neutrophils (%) (Auto) 89 % (31-73) Lymphocytes (%) (Auto) 5 % (24-48) Monocytes (%) (Auto) 6 % (0-9) Eosinophils (%) (Auto) 0 % (0-3) Basophils (%) (Auto) 0 % (0-3) Neutrophils # (Auto) 10.8 x10^3uL (1.8-7.7) Lymphocytes # (Auto) 0.6 x10^3/uL (1.0-4.8) Monocytes # (Auto) 0.7 x10^3/uL (0.0-1.1) Eosinophils # (Auto) 0.0 x10^3/uL (0.0-0.7) Basophils # (Auto) 0.0 x10^3/uL (0.0-0.2) Sodium Level 138 mmol/L (136-145) Potassium Level 3.4 mmol/L (3.5-5.1) Chloride Level 104 mmol/L (98-107) Carbon Dioxide Level 24 mmol/L (21-32) Anion Gap 10 (6-14) Blood Urea Nitrogen 23 mg/dL (7-20) Creatinine 0.7 mg/dL (0.6-1.0) Estimated GFR (Cockcroft-Gault) 103.3 Glucose Level 179 mg/dL (70-99) Calcium Level 8.6 mg/dL (8.5-10.1) Medications Active Scripts Medications Dose Route/Sig Max Daily Dose Days Date Category Prednisone 50 Mg Tablet 1 Tab PO DAILY 04/14/16 Rx Cyclobenzaprine Hcl 5 Mg Tablet 1 Tab PO TID 10/10/15 Rx Tylenol With Codeine #3 Tablet (Acetaminophen/Codeine Phosphate) 1 Each Tablet 1 Tab PO PRN Q6HRS PRN 10/10/15 Rx Prednisone 50 Mg Tablet 1 Tab PO DAILY 09/23/15 Rx Amlodipine Besylate 5 Mg Tablet 5 Mg PO DAILY 09/23/15 Rx Ventolin Hfa Inhaler (Albuterol Sulfate) 18 Gm Hfa.aer.ad 2 Puff INH Q4HRS 09/23/15 Rx Hydrocodone-Apap 5-325 (Hydrocodone Bit/Acetaminophen) 1 Each Tablet 1 Tab PO PRN Q6HRS PRN 30 04/21/14 Rx Microzide (Hydrochlorothiazide) 12.5 Mg Capsule 12.5 Mg PO DAILY 04/21/14 Rx Cozaar (Losartan Potassium) 25 Mg Tablet 25 Mg PO DAILY 04/21/14 Rx Impression . 1. Acute respiratory failure secondary to angioedema. 2. History of lisinopril-induced angioedema. 3. Hypertension. 4. Chronic obstructive pulmonary disease with possible asthma component. 5. Diverticulitis. 6. History of diverticulosis. Plan . DID NOT DO WELL ON TRIAL YESTERDAY SEC TO ANXIETY?, WILL D/W WITH RT MAY NEED TO EXTUBATE WITHOUT TRIAL TONGUE APPEARS TO BE BACK TO NORMAL CONTINUE OTHER SUPPORT FOR NOW TUBE FEEDING D/W DR SIDHU YESTERDAY DECREASE STEROID TOTAL CCT 35 MIN CH[facility] HERCULES MD Oct 28, 2016 08:03
[2016-10-28] MEDS: CHLORHEXIDINE 0.12% 15 ML MOUTHWASH. MM SCH ×2 (08:38→20:19)
[2016-10-28] MEDS: amLODIPine BESYLATE 5 MG TABLET PO SCH (08:57)
[2016-10-28] MEDS: methylPREDNISolone SOD SUCC PF 125 MG/2 ML VIAL. IV SCH ×2 (08:58→20:30)
[2016-10-28 09:45] LABS: HCO3 ABG 23 mmol/L (21-28); PCO2 ABG 39 mmHg (35-46); PH ABG 7.38 (7.35-7.45); PO2 ABG 126 mmHg (65-108); SAT O2 ABG 98 % (92-99)
[2016-10-28 10:04] LABS: FIO2 ABG 30
--- NOTE | 2016-10-28 11:40 | PDOC ---
PROGRESS NOTES Subjective Subjective extubated this morning, doing well ,talking Objective Objective Vital Signs Date Time Temp Pulse Resp B/P (MAP) Pulse Ox O2 Delivery O2 Flow Rate FiO2 10/28/16 08:57 62 123/70 10/28/16 08:47 99 Ventilator 10/28/16 07:39 15.0 10/28/16 06:00 16 10/28/16 00:00 99.0 99.0 Intake and Output 10/28/16 07:00 Intake Total 1757 ml Output Total 960 ml Balance 797 ml Intake Oral 0 ml IV Total 133 ml Tube Feeding 984 ml Other 640 ml Output Urine Total 960 ml Physical Exam Physical Exam tongue not swollen, ET tube in place Abdomen: Soft, No tenderness Heart: Regular rate Extremities: No clubbing, No cyanosis General: Alert, No acute distress Lungs: Normal air movement Skin: No breakdown COMMENT tongue not swollen Diagnosis Problem List Problems Medical Problems: (1) Angioedema Status: Acute Assessment Assessment Problems Medical Problems: (1) Angioedema Status: Acute FINAL IMPRESSION: 1. Idiopathic angioedema. 2. Hypertension. 3. On vent for airway protection, extubated 10/28/16 PLAN: extubated this am, speech to see. labs noted. pt/ot. continue steroids. continue vent management, ready for extubation,tongue is not swollen now, went weaning today tube feedings gi protection dvt prevention. iv solumedrol. Problems: Plan Plan of Care Problems Medical Problems: (1) Angioedema Status: Acute Comment Review of Relevant I have reviewed the following items tu (where applicable) has been applied. Labs Laboratory Tests Test 10/28/16 03:30 10/28/16 03:50 10/28/16 09:30 White Blood Count 12.0 x10^3/uL (4.0-11.0) Red Blood Count 4.62 x10^6/uL (3.50-5.40) Hemoglobin 11.6 g/dL (12.0-15.5) Hematocrit 36.7 % (36.0-47.0) Mean Corpuscular Volume 79 fL (79-100) Mean Corpuscular Hemoglobin 25 pg (25-35) Mean Corpuscular Hemoglobin Concent 32 g/dL (31-37) Red Cell Distribution Width 18.4 % (11.5-14.5) Platelet Count 218 x10^3/uL (140-400) Neutrophils (%) (Auto) 89 % (31-73) Lymphocytes (%) (Auto) 5 % (24-48) Monocytes (%) (Auto) 6 % (0-9) Eosinophils (%) (Auto) 0 % (0-3) Basophils (%) (Auto) 0 % (0-3) Neutrophils # (Auto) 10.8 x10^3uL (1.8-7.7) Lymphocytes # (Auto) 0.6 x10^3/uL (1.0-4.8) Monocytes # (Auto) 0.7 x10^3/uL (0.0-1.1) Eosinophils # (Auto) 0.0 x10^3/uL (0.0-0.7) Basophils # (Auto) 0.0 x10^3/uL (0.0-0.2) Sodium Level 138 mmol/L (136-145) Potassium Level 3.4 mmol/L (3.5-5.1) Chloride Level 104 mmol/L (98-107) Carbon Dioxide Level 24 mmol/L (21-32) Anion Gap 10 (6-14) Blood Urea Nitrogen 23 mg/dL (7-20) Creatinine 0.7 mg/dL (0.6-1.0) Estimated GFR (Cockcroft-Gault) 103.3 Glucose Level 179 mg/dL (70-99) Calcium Level 8.6 mg/dL (8.5-10.1) Magnesium Level 2.2 mg/dL (1.8-2.4) O2 Saturation 98 % (92-99) Arterial Blood pH 7.38 (7.35-7.45) Arterial Blood pCO2 at Patient Temp 39 mmHg (35-46) Arterial Blood pO2 at Patient Temp 126 mmHg (65-108) Arterial Blood HCO3 23 mmol/L (21-28) Arterial Blood Base Excess -2 mmol/L (-3-3) FiO2 30 Microbiology 10/26/16 Blood Culture - Preliminary, Resulted NO GROWTH AFTER 1 DAY Medications Current Medications Potassium Chloride (KCl Oral Soln) 40 meq 1X ONCE PEG Last administered on 10/27t 13:38; Start 10/27/16 at 13:45; Stop 10/27/16 at 13:46; Status DC Potassium Chloride (Klor-Con) 40 meq 1X ONCE PO ; Start 10/27/16 at 13:00; Stop 10/27/16 at 13:32; Status DC Propofol 100 ml @ 0 mls/hr CONT PRN IV SEE I/O RECORD Last administered on t 07:11; Start 10/27/16 at 17:00 Vitals/I & O Vital Sign - Last 24 Hours 10/27/16 10/27/16 10/27/16 10/27/16 11:57 12:00 12:10 13:00 Temp 98.0 98.0 Pulse 50 57 69 Resp 16 16 B/P (MAP) 190/88 178/88 (118) 127/71 (89) Pulse Ox 99 99 O2 Delivery Ventilator Mechanical Ventilator Ventilator 10/27/16 10/27/16 10/27/16 10/27/16 14:00 15:34 16:00 16:52 Temp 98.1 98.1 Pulse 58 66 Resp 16 16 B/P (MAP) 126/70 (88) 125/71 (89) Pulse Ox 99 99 99 O2 Delivery Ventilator Ventilator Mechanical Ventilator Ventilator 10/27/16 10/27/16 10/27/16 10/27/16 17:00 17:44 18:00 19:00 Temp 99.2 99.2 Pulse 53 61 66 Resp 16 16 16 B/P (MAP) 126/76 (93) 119/58 (78) 128/72 (90) Pulse Ox 40 99 99 99 O2 Delivery Ventilator Ventilator Ventilator Ventilator 10/27/16 10/27/16 10/27/16 10/27/16 19:51 19:55 20:00 20:12 Pulse 60 Resp 16 B/P (MAP) 140/80 (100) Pulse Ox 99 99 99 O2 Delivery Ventilator Ventilator Mechanical Ventilator O2 Flow Rate 15.0 10/27/16 10/27/16 10/27/16 10/27/16 21:00 21:50 22:00 23:00 Pulse 62 50 48 Resp 16 16 16 B/P (MAP) 165/89 (114) 125/75 (92) 136/74 (94) Pulse Ox 100 99 99 99 O2 Delivery Ventilator Ventilator Ventilator Ventilator 10/27/16 10/27/16 10/28/16 10/28/16 23:55 23:56 00:00 01:00 Temp 99.0 99.0 Pulse 54 50 Resp 16 16 B/P (MAP) 138/68 (91) 131/66 (87) Pulse Ox 99 99 99 O2 Delivery Ventilator Mechanical Ventilator Ventilator Ventilator 10/28/16 10/28/16 10/28/16 10/28/16 01:55 02:00 03:00 03:35 Pulse 50 50 Resp 16 16 B/P (MAP) 116/64 (81) 119/66 (83) Pulse Ox 99 98 98 99 O2 Delivery Ventilator Ventilator Ventilator O2 Flow Rate 15.0 10/28/16 10/28/16 10/28/16 10/28/16 03:45 03:51 04:00 04:05 Pulse 66 Resp 16 B/P (MAP) 125/73 (90) Pulse Ox 99 98 99 O2 Delivery Ventilator Mechanical Ventilator Ventilator O2 Flow Rate 15.0 10/28/16 10/28/16 10/28/16 10/28/16 05:00 05:14 06:00 07:39 Pulse 50 48 Resp 16 16 B/P (MAP) 110/68 (82) 132/71 (91) Pulse Ox 98 99 98 98 O2 Delivery Ventilator Ventilator Ventilator O2 Flow Rate 15.0 10/28/16 10/28/16 08:47 08:57 Pulse 62 B/P (MAP) 123/70 Pulse Ox 99 O2 Delivery Ventilator Intake and Output 10/27/16 10/27/16 10/28/16 15:00 23:00 07:00 Intake Total 246 ml 684 ml 827 ml Output Total 455 ml 225 ml 280 ml Balance -209 ml 459 ml 547 ml BONIFACIO SIDHU MD Oct 28, 2016 11:40
[2016-10-28] MEDS ORDERED: IPRATRPIUM/ALBUTEROL 0.5/2.5MG 3 ML NEBU. NEB PRN (12:00)
[2016-10-28] MEDS: hydrALAZINE 20 MG/ML VIAL. IVP PRN ×2 (15:10→17:21)
[2016-10-28] MEDS: IPRATRPIUM/ALBUTEROL 0.5/2.5MG 3 ML NEBU. NEB SCH ×2 (16:42→19:45)
[2016-10-28] MEDS: HYDROcodone/APAP 5/325MG 1 TAB TABLET PO PRN (20:30)
[2016-10-28] MEDS: ENOXAPARIN 40 MG/0.4 ML SYRINGE. SQ SCH (20:31)
[2016-10-28] MEDS: FAMOTIDINE 20 MG/2 ML VIAL IVP SCH (20:33)
[2016-10-29] VITALS (16 sets, daily range): BP systolic 103–168; BP diastolic 58–83
[2016-10-29] MEDS: HYDROcodone/APAP 5/325MG 1 TAB TABLET PO PRN ×3 (02:52→21:33)
[2016-10-29 04:39] LABS: BASO % 0 % (0-3); EOS % 0 % (0-3); HEMATOCRIT 38.3 % (36.0-47.0); HEMOGLOBIN 12.1 g/dL (12.0-15.5); LYMPH # 0.5 x10^3/uL (1.0-4.8); LYMPH % 3 % (24-48); MEAN CORPUSCULAR HEMOGLOBIN 25 pg (25-35); MEAN CORPUSCULAR HGB CONC 32 g/dL (31-37); MEAN CORPUSCULAR VOLUME 80 fL (79-100); MONO % 6 % (0-9); NEUT % 91 % (31-73); PLATELET COUNT 256 x10^3/uL (140-400); RED BLOOD COUNT 4.81 x10^6/uL (3.50-5.40); RED CELL DISTRIBUTION WIDTH 18.3 % (11.5-14.5); WHITE BLOOD COUNT 15.8 x10^3/uL (4.0-11.0)
[2016-10-29 04:51] LABS: CALCIUM 8.7 mg/dL (8.5-10.1); CREATININE 0.7 mg/dL (0.6-1.0); GFR 103.3; POTASSIUM 3.6 mmol/L (3.5-5.1)
[2016-10-29] MEDS: IPRATRPIUM/ALBUTEROL 0.5/2.5MG 3 ML NEBU. NEB SCH ×4 (08:17→19:25)
[2016-10-29] MEDS: amLODIPine BESYLATE 5 MG TABLET PO SCH (09:56)
[2016-10-29] MEDS: CHLORHEXIDINE 0.12% 15 ML MOUTHWASH. MM SCH (09:57)
[2016-10-29] MEDS: methylPREDNISolone SOD SUCC PF 125 MG/2 ML VIAL. IV SCH (09:57)
--- NOTE | 2016-10-29 10:24 | PDOC ---
PROGRESS NOTES Subjective Subjective doing well extubated yesterday,talking and eating well Objective Objective Vital Signs Date Time Temp Pulse Resp B/P (MAP) Pulse Ox O2 Delivery O2 Flow Rate FiO2 10/29/16 10:15 70 19 130/65 (86) 93 Room Air 10/29/16 08:05 98.5 98.5 10/28/16 19:46 1.0 Intake and Output 10/29/16 07:00 Intake Total 322 ml Output Total 2625 ml Balance -2303 ml Tube Feeding 162 ml Other 160 ml Output Urine Total 2625 ml Physical Exam Physical Exam tongue not swollen, ET tube in place Abdomen: Soft, No tenderness Heart: Regular rate Extremities: No clubbing, No cyanosis General: Alert, No acute distress Lungs: Normal air movement Skin: No breakdown COMMENT tongue not swollen Diagnosis Problem List Problems Medical Problems: (1) Angioedema Status: Acute Assessment Assessment Problems Medical Problems: (1) Angioedema Status: Acute FINAL IMPRESSION: 1. Idiopathic angioedema. 2. Hypertension. 3. On vent for airway protection, extubated 10/28/16 PLAN: transfer out of ICU. extubated 10/28/16 eating well labs noted. pt/ot. oral steroids. home in 1-2 days Problems: Plan Plan of Care Problems Medical Problems: (1) Angioedema Status: Acute Comment Review of Relevant I have reviewed the following items tu (where applicable) has been applied. Labs Laboratory Tests Test 10/29/16 04:25 White Blood Count 15.8 x10^3/uL (4.0-11.0) Red Blood Count 4.81 x10^6/uL (3.50-5.40) Hemoglobin 12.1 g/dL (12.0-15.5) Hematocrit 38.3 % (36.0-47.0) Mean Corpuscular Volume 80 fL (79-100) Mean Corpuscular Hemoglobin 25 pg (25-35) Mean Corpuscular Hemoglobin Concent 32 g/dL (31-37) Red Cell Distribution Width 18.3 % (11.5-14.5) Platelet Count 256 x10^3/uL (140-400) Neutrophils (%) (Auto) 91 % (31-73) Lymphocytes (%) (Auto) 3 % (24-48) Monocytes (%) (Auto) 6 % (0-9) Eosinophils (%) (Auto) 0 % (0-3) Basophils (%) (Auto) 0 % (0-3) Neutrophils # (Auto) 14.3 x10^3uL (1.8-7.7) Lymphocytes # (Auto) 0.5 x10^3/uL (1.0-4.8) Monocytes # (Auto) 0.9 x10^3/uL (0.0-1.1) Eosinophils # (Auto) 0.0 x10^3/uL (0.0-0.7) Basophils # (Auto) 0.0 x10^3/uL (0.0-0.2) Sodium Level 139 mmol/L (136-145) Potassium Level 3.6 mmol/L (3.5-5.1) Chloride Level 103 mmol/L (98-107) Carbon Dioxide Level 27 mmol/L (21-32) Anion Gap 9 (6-14) Blood Urea Nitrogen 23 mg/dL (7-20) Creatinine 0.7 mg/dL (0.6-1.0) Estimated GFR (Cockcroft-Gault) 103.3 Glucose Level 136 mg/dL (70-99) Calcium Level 8.7 mg/dL (8.5-10.1) Microbiology 10/26/16 Blood Culture - Preliminary, Resulted NO GROWTH AFTER 2 DAYS Medications Current Medications Acetaminophen/ Hydrocodone Bitart (Lortab 5/325) 1 tab PRN Q6HRS PRN PO PAIN Last administered on 10/29/16 02:52; Start 10/28/16 at 20:15 Albuterol/ Ipratropium (Duoneb) 3 ml QID PRN NEB WHEEZING; Start 10/28/16 at 12: 00; Status UNV Albuterol/ Ipratropium (Duoneb) 3 ml RTQID NEB Last administered on 10/29/16 08 :17; Start 10/28/16 at 12:00 Vitals/I & O Vital Sign - Last 24 Hours 10/28/16 10/28/16 10/28/16 10/28/16 11:00 12:00 12:00 13:00 Temp 98.6 98.6 Pulse 60 58 60 Resp 20 20 20 B/P (MAP) 159/82 (107) Pulse Ox 98 94 99 O2 Delivery Nasal Cannula Nasal Cannula Nasal Cannula Nasal Cannula O2 Flow Rate 2.0 2.0 2.0 2.0 10/28/16 10/28/16 10/28/16 10/28/16 14:00 14:50 15:00 15:10 Pulse 58 54 59 Resp 20 17 B/P (MAP) 176/86 (116) 176/86 Pulse Ox 96 98 99 O2 Delivery Nasal Cannula Nasal Cannula Nasal Cannula O2 Flow Rate 2.0 2.0 2.0 10/28/16 10/28/16 10/28/16 10/28/16 16:00 16:00 16:30 16:42 Temp 97.9 97.9 Pulse 68 Resp 22 B/P (MAP) 163/86 (111) 157/83 (107) Pulse Ox 98 98 O2 Delivery Nasal Cannula Nasal Cannula O2 Flow Rate 2.0 2.0 10/28/16 10/28/16 10/28/16 10/28/16 17:00 17:21 17:30 18:07 Pulse 74 78 77 Resp 18 B/P (MAP) 162/77 (105) 162/77 149/85 (106) 127/69 (88) Pulse Ox 96 O2 Delivery Nasal Cannula O2 Flow Rate 2.0 10/28/16 10/28/16 10/28/16 10/28/16 18:38 19:00 19:08 19:46 Temp 98.4 98.4 Pulse 74 Resp 16 B/P (MAP) 137/71 (93) Pulse Ox 96 96 99 O2 Delivery Nasal Cannula Room Air Room Air Nasal Cannula O2 Flow Rate 2.0 1.0 1.0 10/28/16 10/28/16 10/28/16 10/28/16 20:00 20:00 20:30 21:00 Pulse 70 88 Resp 16 12 16 B/P (MAP) 137/75 (95) 147/71 (96) Pulse Ox 96 96 96 O2 Delivery Room Air Room Air Room Air Room Air 10/28/16 10/28/16 10/28/16 10/29/16 21:30 22:00 23:00 00:00 Temp 98.3 98.3 Pulse 78 84 72 Resp 14 16 12 B/P (MAP) 140/65 (90) 148/78 (101) 152/83 (106) Pulse Ox 94 93 95 94 O2 Delivery Room Air Room Air Room Air Room Air 10/29/16 10/29/16 10/29/16 10/29/16 00:27 01:00 02:00 02:52 Pulse 74 82 Resp 16 16 B/P (MAP) 153/74 (100) 155/76 (102) Pulse Ox 95 96 O2 Delivery Room Air Room Air Room Air Room Air 10/29/16 10/29/16 10/29/16 10/29/16 03:00 04:00 04:06 05:00 Temp 98.2 98.2 Pulse 72 70 68 Resp 16 16 16 B/P (MAP) 168/77 (107) 159/76 (103) 153/68 (96) Pulse Ox 96 98 94 O2 Delivery Room Air Room Air Room Air Room Air 10/29/16 10/29/16 10/29/16 10/29/16 06:00 07:19 08:05 08:05 Temp 98.5 98.5 98.5 98.5 Pulse 84 76 67 Resp 16 14 14 B/P (MAP) 134/58 (83) 133/59 (83) 154/74 (100) Pulse Ox 96 91 O2 Delivery Room Air Room Air Room Air 10/29/16 10/29/16 10/29/16 10/29/16 08:18 09:00 09:56 10:15 Pulse 72 70 70 Resp 15 19 B/P (MAP) 146/69 (94) 133/71 130/65 (86) Pulse Ox 99 94 93 O2 Delivery Room Air Room Air Room Air Intake and Output 10/28/16 10/28/16 10/29/16 15:00 23:00 07:00 Intake Total 25 ml 297 ml Output Total 2100 ml 525 ml Balance 25 ml -1803 ml -525 ml BONIFACIO SIDHU MD Oct 29, 2016 10:24
[2016-10-29] MEDS ORDERED: predniSONE 20 MG TABLET PO ONE (11:00)
[2016-10-29] MEDS: FAMOTIDINE 20 MG TABLET. PO SCH ×2 (11:24→21:33)
[2016-10-29] MEDS: CETIRIZINE HCL 10 MG TABLET. PO SCH (11:24)
--- NOTE | 2016-10-29 11:24 | PDOC ---
PULMONARY PROGRESS NOTES Subjective extubated, on RA. doing well Vitals Vital Signs Date Time Temp Pulse Resp B/P (MAP) Pulse Ox O2 Delivery O2 Flow Rate FiO2 10/29/16 10:15 70 19 130/65 (86) 93 Room Air 10/29/16 08:05 98.5 98.5 10/28/16 19:46 1.0 General: Alert, No acute distress HEENT: Other (TONGUE NOT PROTUDING FROM MOUTH MUCH SMALLER) Lungs: Clear Cardiovascular: S1, S2 Abdomen: Soft Neuro Exam: Alert Extremities: No Edema Skin: Warm Labs Laboratory Tests Test 10/28/16 03:30 10/28/16 03:50 10/28/16 09:30 10/29/16 04:25 White Blood Count 12.0 x10^3/uL (4.0-11.0) 15.8 x10^3/uL (4.0-11.0) Red Blood Count 4.62 x10^6/uL (3.50-5.40) 4.81 x10^6/uL (3.50-5.40) Hemoglobin 11.6 g/dL (12.0-15.5) 12.1 g/dL (12.0-15.5) Hematocrit 36.7 % (36.0-47.0) 38.3 % (36.0-47.0) Mean Corpuscular Volume 79 fL (79-100) 80 fL (79-100) Mean Corpuscular Hemoglobin 25 pg (25-35) 25 pg (25-35) Mean Corpuscular Hemoglobin Concent 32 g/dL (31-37) 32 g/dL (31-37) Red Cell Distribution Width 18.4 % (11.5-14.5) 18.3 % (11.5-14.5) Platelet Count 218 x10^3/uL (140-400) 256 x10^3/uL (140-400) Neutrophils (%) (Auto) 89 % (31-73) 91 % (31-73) Lymphocytes (%) (Auto) 5 % (24-48) 3 % (24-48) Monocytes (%) (Auto) 6 % (0-9) 6 % (0-9) Eosinophils (%) (Auto) 0 % (0-3) 0 % (0-3) Basophils (%) (Auto) 0 % (0-3) 0 % (0-3) Neutrophils # (Auto) 10.8 x10^3uL (1.8-7.7) 14.3 x10^3uL (1.8-7.7) Lymphocytes # (Auto) 0.6 x10^3/uL (1.0-4.8) 0.5 x10^3/uL (1.0-4.8) Monocytes # (Auto) 0.7 x10^3/uL (0.0-1.1) 0.9 x10^3/uL (0.0-1.1) Eosinophils # (Auto) 0.0 x10^3/uL (0.0-0.7) 0.0 x10^3/uL (0.0-0.7) Basophils # (Auto) 0.0 x10^3/uL (0.0-0.2) 0.0 x10^3/uL (0.0-0.2) Sodium Level 138 mmol/L (136-145) 139 mmol/L (136-145) Potassium Level 3.4 mmol/L (3.5-5.1) 3.6 mmol/L (3.5-5.1) Chloride Level 104 mmol/L (98-107) 103 mmol/L (98-107) Carbon Dioxide Level 24 mmol/L (21-32) 27 mmol/L (21-32) Anion Gap 10 (6-14) 9 (6-14) Blood Urea Nitrogen 23 mg/dL (7-20) 23 mg/dL (7-20) Creatinine 0.7 mg/dL (0.6-1.0) 0.7 mg/dL (0.6-1.0) Estimated GFR (Cockcroft-Gault) 103.3 103.3 Glucose Level 179 mg/dL (70-99) 136 mg/dL (70-99) Calcium Level 8.6 mg/dL (8.5-10.1) 8.7 mg/dL (8.5-10.1) Magnesium Level 2.2 mg/dL (1.8-2.4) O2 Saturation 98 % (92-99) Arterial Blood pH 7.38 (7.35-7.45) Arterial Blood pCO2 at Patient Temp 39 mmHg (35-46) Arterial Blood pO2 at Patient Temp 126 mmHg (65-108) Arterial Blood HCO3 23 mmol/L (21-28) Arterial Blood Base Excess -2 mmol/L (-3-3) FiO2 30 Laboratory Tests Test 10/29/16 04:25 White Blood Count 15.8 x10^3/uL (4.0-11.0) Red Blood Count 4.81 x10^6/uL (3.50-5.40) Hemoglobin 12.1 g/dL (12.0-15.5) Hematocrit 38.3 % (36.0-47.0) Mean Corpuscular Volume 80 fL (79-100) Mean Corpuscular Hemoglobin 25 pg (25-35) Mean Corpuscular Hemoglobin Concent 32 g/dL (31-37) Red Cell Distribution Width 18.3 % (11.5-14.5) Platelet Count 256 x10^3/uL (140-400) Neutrophils (%) (Auto) 91 % (31-73) Lymphocytes (%) (Auto) 3 % (24-48) Monocytes (%) (Auto) 6 % (0-9) Eosinophils (%) (Auto) 0 % (0-3) Basophils (%) (Auto) 0 % (0-3) Neutrophils # (Auto) 14.3 x10^3uL (1.8-7.7) Lymphocytes # (Auto) 0.5 x10^3/uL (1.0-4.8) Monocytes # (Auto) 0.9 x10^3/uL (0.0-1.1) Eosinophils # (Auto) 0.0 x10^3/uL (0.0-0.7) Basophils # (Auto) 0.0 x10^3/uL (0.0-0.2) Sodium Level 139 mmol/L (136-145) Potassium Level 3.6 mmol/L (3.5-5.1) Chloride Level 103 mmol/L (98-107) Carbon Dioxide Level 27 mmol/L (21-32) Anion Gap 9 (6-14) Blood Urea Nitrogen 23 mg/dL (7-20) Creatinine 0.7 mg/dL (0.6-1.0) Estimated GFR (Cockcroft-Gault) 103.3 Glucose Level 136 mg/dL (70-99) Calcium Level 8.7 mg/dL (8.5-10.1) Medications Active Scripts Medications Dose Route/Sig Max Daily Dose Days Date Category Prednisone 50 Mg Tablet 1 Tab PO DAILY 04/14/16 Rx Cyclobenzaprine Hcl 5 Mg Tablet 1 Tab PO TID 10/10/15 Rx Tylenol With Codeine #3 Tablet (Acetaminophen/Codeine Phosphate) 1 Each Tablet 1 Tab PO PRN Q6HRS PRN 10/10/15 Rx Prednisone 50 Mg Tablet 1 Tab PO DAILY 09/23/15 Rx Amlodipine Besylate 5 Mg Tablet 5 Mg PO DAILY 09/23/15 Rx Ventolin Hfa Inhaler (Albuterol Sulfate) 18 Gm Hfa.aer.ad 2 Puff INH Q4HRS 09/23/15 Rx Hydrocodone-Apap 5-325 (Hydrocodone Bit/Acetaminophen) 1 Each Tablet 1 Tab PO PRN Q6HRS PRN 30 04/21/14 Rx Microzide (Hydrochlorothiazide) 12.5 Mg Capsule 12.5 Mg PO DAILY 04/21/14 Rx Cozaar (Losartan Potassium) 25 Mg Tablet 25 Mg PO DAILY 04/21/14 Rx Impression . 1. Acute respiratory failure secondary to angioedema. 2. 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 Hypertension. 4. Chronic obstructive pulmonary disease with possible asthma component. 5. Diverticulitis. 6. History of diverticulosis. Plan . DOING WELL POST EXTUBATION TONGUE APPEARS TO BE BACK TO NORMAL CONTINUE OTHER SUPPORT FOR NOW DECREASE STEROID TRANSFER TO FLOOR JAZMIN CARD MD Oct 29, 2016 11:24
[2016-10-29] MEDS: hydrALAZINE 20 MG/ML VIAL. IVP PRN (12:52)
[2016-10-29] MEDS: ENOXAPARIN 40 MG/0.4 ML SYRINGE. SQ SCH (21:33)
[2016-10-30 03:00] VITALS: BP 157/78
[2016-10-30] MEDS: HYDROcodone/APAP 5/325MG 1 TAB TABLET PO PRN (03:57)
[2016-10-30 07:00] VITALS: BP 124/76
[2016-10-30] MEDS: IPRATRPIUM/ALBUTEROL 0.5/2.5MG 3 ML NEBU. NEB SCH (07:43)
[2016-10-30] MEDS: FAMOTIDINE 20 MG TABLET. PO SCH (08:22)
[2016-10-30 08:23] VITALS: BP 124/76
[2016-10-30] MEDS: amLODIPine BESYLATE 5 MG TABLET PO SCH (08:23)
[2016-10-30] MEDS: CETIRIZINE HCL 10 MG TABLET. PO SCH (08:23)
[2016-10-30] MEDS ORDERED: PHENOL ORAL SPRAY 177ML BOTTLE. PO PRN (08:30)
[2016-10-30] MEDS ORDERED: BISACODYL 5 MG TABLET.DR. PO PRN (08:30)
[2016-10-30] MEDS ORDERED: predniSONE 20 MG TABLET PO SCH (09:00)
--- NOTE | 2016-10-30 10:32 | PDOC ---
PROGRESS NOTES Subjective Subjective feels better ,ready to go home Objective Objective Vital Signs Date Time Temp Pulse Resp B/P (MAP) Pulse Ox O2 Delivery O2 Flow Rate FiO2 10/30/16 08:23 86 124/76 10/30/16 07:45 Room Air 10/30/16 07:44 97 10/30/16 07:00 97.9 14 97.9 10/29/16 15:51 1.0 Intake and Output 10/30/16 07:00 Intake Total 580 ml Output Total 850 ml Balance -270 ml Intake Oral 580 ml Output Urine Total 850 ml Physical Exam Physical Exam tongue not swollen, ET tube in place Abdomen: Soft, No tenderness Heart: Regular rate Extremities: No clubbing, No cyanosis General: Alert, No acute distress Lungs: Normal air movement Skin: No breakdown COMMENT tongue not swollen Diagnosis Problem List Problems Medical Problems: (1) Angioedema Status: Acute Assessment Assessment Problems Medical Problems: (1) Angioedema Status: Acute FINAL IMPRESSION: 1. Idiopathic angioedema. 2. Hypertension. 3. On vent for airway protection, extubated 10/28/16 PLAN: d/c home on tapering doses of prednisone,pepcid and zyrtec. Generic Epipen Rx given for future emergencies transfer out of ICU 10/29/16. extubated 10/28/16 eating well labs noted. Problems: Plan Plan of Care Problems Medical Problems: (1) Angioedema Status: Acute Comment Review of Relevant I have reviewed the following items tu (where applicable) has been applied. Labs Microbiology 10/26/16 Blood Culture - Preliminary, Resulted NO GROWTH AFTER 3 DAYS Medications Current Medications Bisacodyl (Dulcolax Tab) 10 mg PRN DAILY PRN PO CONSTIPATION Last administered on 10/30/16 08:29; Start 10/30/16 at 08:30 Cetirizine HCl (ZyrTEC) 10 mg DAILY PO Last administered on 10/30/16 08:23; Start 10/29/16 at 11:00 Famotidine (Pepcid) 20 mg BID PO Last administered on 10/30/16 08:22; Start 10/29/16 at 11:00 Prednisone (Prednisone) 40 mg DAILY PO Last administered on 10/30/16 08:22; Start 10/30/16 at 09:00 Prednisone (Prednisone) 60 mg 1X ONCE PO Last administered on 10/29/16 11:24; Start 10/29/16 at 11:00; Stop 10/29/16 at 11:01; Status DC Throat Lozenges (Chloraseptic) 1 spray PRN Q2HR PRN PO SORE THROAT Last administered on 10/30/16 09:09; Start 10/30/16 at 08:30 Vitals/I & O Vital Sign - Last 24 Hours 10/29/16 10/29/16 10/29/16 10/29/16 11:00 12:18 12:52 14:10 Temp 98.5 98.5 Pulse 68 69 80 Resp 18 B/P (MAP) 164/80 (108) 186/87 158/71 (100) Pulse Ox 96 O2 Delivery Room Air Room Air 10/29/16 10/29/16 10/29/16 10/29/16 14:51 15:49 15:51 16:06 Temp 99.5 99.5 Pulse 83 Resp 18 20 B/P (MAP) 142/71 (94) Pulse Ox 96 99 O2 Delivery Room Air Room Air Room Air O2 Flow Rate 1.0 10/29/16 10/29/16 10/29/16 10/29/16 19:00 19:25 19:50 21:33 Temp 97.9 97.9 Pulse 80 Resp 18 18 B/P (MAP) 103/64 (77) Pulse Ox 92 97 O2 Delivery Room Air Room Air Room Air Room Air 10/29/16 10/30/16 10/30/16 10/30/16 23:00 03:00 03:57 05:00 Temp 98.8 98.1 98.8 98.1 Pulse 86 70 Resp 18 18 18 B/P (MAP) 140/69 (92) 157/78 (104) Pulse Ox 96 96 O2 Delivery Room Air Room Air Room Air Room Air 10/30/16 10/30/16 10/30/16 10/30/16 07:00 07:44 07:45 08:23 Temp 97.9 97.9 Pulse 86 86 Resp 14 B/P (MAP) 124/76 (92) 124/76 Pulse Ox 96 97 O2 Delivery Room Air Room Air Room Air Intake and Output 10/29/16 10/29/16 10/30/16 15:00 23:00 07:00 Intake Total 480 ml 100 ml Output Total 350 ml 350 ml 150 ml Balance 130 ml -250 ml -150 ml BONIFACIO SIDHU MD Oct 30, 2016 10:32
[2016-10-30] MEDS ORDERED: FAMO20TA5 PO (10:35)
[2016-10-30] MEDS ORDERED: PRED20TA PO (10:35)
[2016-10-30] MEDS ORDERED: CETI10TA22 PO (10:35)
--- NOTE | 2016-10-30 15:47 | PDOC ---
Provider Note Provider Note Discharge summary dictated. #[id number] BONIFACIO SIDHU MD Oct 30, 2016 15:47
--- NOTE | 2016-10-30 21:53 | DS ---
DATE OF DISCHARGE: 10/30/2016 REASON FOR ADMISSION TO THE HOSPITAL: Angioedema, swelling of the tongue. CONSULTATIONS: Dr. Burnett and surgical consult Dr. Blanc. PROCEDURES DONE: Endotracheal intubation and mechanical ventilation for airway protection. COMPLICATIONS NOTED: None. HOSPITAL COURSE: The patient is a 61-year-old female who has history of idiopathic angioedema, had seen specialist in the past. This is the fourth episode of developed swelling in the tongue and the patient came in with severe swelling in the tongue, could hardly speak, not able to swallow. The patient was intubated and on mechanical ventilation for airway protection. The patient was in the ICU for 4 days and she was given IV Solu-Medrol, Benadryl and fresh frozen plasma. The patient's condition improved over time and the patient was successfully extubated, was seen and watched over 1 day in the ICU, was seen by Speech and she was doing fine and she was discharged home. 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 History of previous episodes in the past. She had required tracheostomy 10 years ago at . The patient has seen specialists Allergy and Immunology at and the patient was discharged home with tapering dose of prednisone, Pepcid, Zyrtec and EpiPen. BONIFACIO SIDHU MD DR: RODRIGUE/concepcion JOB#: [id number] / [id number] DELL
== END 2016-10-30 10:58 | disposition home or self-care (01) | DRG 207 ==
LOC: ER 05:29 → 1 WEST ICU 06:24 → 4 NORTH 10-29 16:34
PROVIDERS: ADMIT Internal Medicine; ATTEND Internal Medicine
PROC: 5A1955Z Respiratory Ventilation, Greater than 96 Consecutive Hours (ICD-10-PCS; principal; 2016-10-24)
PROC: 0BH17EZ Insertion of Endotracheal Airway into Trachea, Via Natural or Artificial Opening (ICD-10-PCS; 2016-10-24)
PROC: 30233L1 Transfusion of Nonautologous Fresh Plasma into Peripheral Vein, Percutaneous Approach (ICD-10-PCS; 2016-10-24)
PROC: 30233K1 Transfusion of Nonautologous Frozen Plasma into Peripheral Vein, Percutaneous Approach (ICD-10-PCS; 2016-10-24)
DX: J96.00 Acute respiratory failure, unspecified whether with hypoxia or hypercapnia (principal); K57.92 Diverticulitis of intestine, part unspecified, without perforation or abscess without bleeding; T78.3XXA Angioneurotic edema, initial encounter; I10 Essential (primary) hypertension; J44.9 Chronic obstructive pulmonary disease, unspecified; K21.9 Gastro-esophageal reflux disease without esophagitis; K57.90 Diverticulosis of intestine, part unspecified, without perforation or abscess without bleeding; Z82.49 Family history of ischemic heart disease and other diseases of the circulatory system; Z88.8 Allergy status to other drugs, medicaments and biological substances; Z90.710 Acquired absence of both cervix and uterus; Z81.1 Family history of alcohol abuse and dependence; Z84.89 Family history of other specified conditions; Z88.1 Allergy status to other antibiotic agents; Z90.721 Acquired absence of ovaries, unilateral
CPT/HCPCS: 31500; 36415; 36600; 51702; 71010; 74000; 80048; 80053; 82805; 83735; 85007; 85027; 85610; 85730; 86850; 86900; 86901; 86927; 87040; 87641; 94002; 94003; 94640; 96374; 96375; 99292; J0171; J0330; J0360; J1200; J1650; J2250; J2704; J2930; J3010; J7030; J7512; J7613; J7620; P9017; S0028; 92610; 97116; 99291-25